=== PATIENT | male | born 1990 | race Two or more races ===

== ENCOUNTER 2021-08-31 10:52 | Outpatient (REF) | payer OTHER, SELFPAY ==
[2021-08-31 13:37] LABS: Appearance Urine CLOUDY; Color Urine YELLOW; Glucose Urine UA NEG (NEG); Leukocyte Esterase Urine NEG (NEG); Nitrite Urine NEG (NEG); Specific Gravity - Urine 1.015 (1.005-1.025); Urine Blood NEG (NEG); Urine Ketones NEG (NEG); Urine Protein NEG (NEG-TRACE)
[2021-08-31 13:41] LABS: MANUAL DIFF FLAG NO
[2021-08-31 13:55] LABS: Basophils Absolute Auto 0.1 X10*3/uL (0.0-0.2); Basophils Percent Auto 0.8 % (0-2); Eosinophils Absolute Auto 0.2 X10*3/uL (0.0-0.4); Eosinophils Percent Auto 2.2 % (0-4); Hematocrit 47.3 % (42.0-52.0); Hemoglobin 15.9 g/dl (14.0-18.0); Imm Gran Abs Auto 0.02 X10*3/uL (0.00-0.03); Imm Gran Pct Auto 0.3 % (0.0-0.4); Lymphocytes Absolute Auto 2.4 X10*3/uL (1.2-4.9); Lymphocytes Percent Auto 33.1 % (20-40); Mean Corpuscular HGB Conc 33.6 g/dl (31.0-36.0); Mean Corpuscular Hemoglobin 28.9 pg (27.0-33.0); Mean Corpuscular Volume 85.8 fL (80.0-98.0); Mean Platelet Volume 9.9 fL (9.4-12.4); Monocytes Absolute Auto 0.5 X10*3/uL (0.1-1.2); Monocytes Percent Auto 7.4 % (2-11); Neutrophils Percent Auto 56.2 % (45-73); Platelet Count 269 X10*3/uL (160-400); Red Blood Count 5.51 X10*6/uL (4.60-5.80); Red Cell Distribution Width 12.9 % (11.0-16.0); White Blood Count 7.1 X10*3/uL (4.8-10.8)
[2021-08-31 14:06] LABS: Alanine Aminotransferase 50 U/L (0-40); Albumin Level 4.3 g/dL (3.5-5.0); Alkaline Phosphatase 97 U/L (39-117); Anion Gap 12 (12-20); Aspartate Amino Transferase 37 U/L (5-37); Bilirubin Total 0.9 mg/dL (0.0-1.0); Blood Urea Nitrogen 10 mg/dL (9-16); Calcium 9.3 mg/dL (8.4-10.2); Carbon Dioxide 26 mmol/L (22-29); Chloride 105 mmol/L (96-108); Cholesterol 140 mg/dL; Estimated Glomerular Filt Rate > 60; Glucose Fasting 83 mg/dL (60-99); HDL Cholesterol 39 mg/dL; LDL Cholesterol Calculated 83 mg/dl; Sodium 139 mmol/L (135-145); Total Protein 7.6 g/dL (6.5-8.0); Triglycerides 93 mg/dL
[2021-08-31 14:28] LABS: TSH reflex Free T4 0.69 uIU/mL (0.32-4.0)
== END 2021-08-31 10:53 | disposition home or self-care (01) ==
LOC: HO.HMGCLDS 10:52
PROVIDERS: PCP Nurse Practitioner Family; Visit Provider Nurse Practitioner Family
DX: Z00.00 Encounter for general adult medical examination without abnormal findings (principal)
CPT/HCPCS: 36415; 80053; 80061; 81003; 84443; 85025

== ENCOUNTER 2021-10-06 09:04 | Outpatient (REF) | payer OTHER, SELFPAY ==
--- NOTE | ~2021-10-06 | US_ITS ---
EXAMINATION: US ABDOMEN COMPLETE CLINICAL INFORMATION: Elevated liver enzymes. COMPARISON: None TECHNIQUE: Real-time imaging of the abdominal viscera. Technically difficult study secondary to bowel gas and body habitus. FINDINGS: PANCREAS: Tail obscured by gas. Remaining of the visualized pancreas within normal limits. ABDOMINAL AORTA: The proximal, mid, and distal segments are normal in caliber. INFERIOR VENA CAVA: Visualized portions are normal. LIVER: Increased parenchymal echogenicity. No focal liver lesion. No intrahepatic biliary ductal dilatation. GALLBLADDER: There is a 0.6 cm gallbladder wall polyp. No gallbladder wall thickening or pericholecystic free fluid. Negative Hassan's sign. COMMON BILE DUCT: Normal in caliber measuring 0.32 cm in diameter. RIGHT KIDNEY: Normal. No hydronephrosis. No renal calculi or focal parenchymal lesions. The kidney measures 12.5 cm in maximum dimension. LEFT KIDNEY: Normal. No hydronephrosis. No renal calculi or focal parenchymal lesions. The kidney measures 14.2 cm in maximum dimension. SPLEEN: Normal. The spleen measures 13.5 cm in maximum dimension. FREE FLUID: None. US/US abdomen complete IMPRESSION: Increased linear parenchymal echogenicity suggesting hepatic steatosis. 0.6 cm gallbladder wall polyp. If the patient demonstrates any risk factors for gallbladder malignancy, a follow-up ultrasound in 6-12 months is recommended. Otherwise, this finding does not require further follow-up.
== END 2021-10-06 09:05 | disposition home or self-care (01) ==
LOC: HO.US 09:04
PROVIDERS: Visit Provider Nurse Practitioner Family
DX: R74.8 Abnormal levels of other serum enzymes (principal)
CPT/HCPCS: 76700

== ENCOUNTER → 2021-10-13 09:30 | Outpatient (REF) | payer OTHER, SELFPAY ==
--- NOTE | 2021-10-13 09:33 | CA_ITS ---
Transthoracic Echocardiogram Patient (Last, First, Middle): Jaskaran Bhat, Gender: Male Date of : 1990 Age: 30 Procedure Date: 10/13/2021 Procedure Type: Transthoracic Echocardiogram Location: OP Height: 182.88 cm Weight: 136.08 kg BSA: 2.53 m2 Heart Rate: bpm BP: 135 / 88 mmHg Sterile Processing Manager: SHAWN Referring MD: Marck Pack [facility]- Symptoms: R94.31 - Abnormal electrocardiogram [ECG] [EKG] Study Quality: Fair/contrast ECG Rhythm: Sinus Conclusions: - The left ventricular systolic function is low normal. The visually estimated ejection fraction is between 50-55%. - Mildly increased right ventricular cavity size. - No obvious valvular pathology seen on this study. Findings Procedure Information Contrast agent, definity, is being given per protocol without apparent complications. Left Ventricle Normal left ventricular cavity size. There is mildly increased left ventricular wall thickness. The left ventricular systolic function is low normal. The visually estimated ejection fraction is between 50-55%. There is no evidence of regional wall motion abnormalities. Diastolic function is normal for age. Right Ventricle Mildly increased right ventricular cavity size. There is normal right ventricular systolic function. Atria Both atria are normal in size. Aortic Valve There is a normal trileaflet aortic valve. There is no aortic valve stenosis. There is no aortic valve regurgitation. Mitral Valve The mitral valve appears normal. There is trace mitral valve regurgitation. There is no mitral valve stenosis. Pulmonic Valve The pulmonic valve is likely normal. Tricuspid Valve Normal tricuspid valve structure. There is trace tricuspid valve regurgitation. The pulmonary artery systolic pressure is normal. Great Vessels The aortic annulus, sinuses of valsalva, and asc aorta are normal in size. Venous The inferior vena cava is normal in size and collapses greater than 50% with inspiration. Pericardium/Pleural There is no evidence of pericardial effusion. Prior Study Comparison No prior study available for comparison. Recommendations, Care & Conclusions No obvious valvular pathology seen on this study. Measurements 2D Linear Measurements IVSd: 1.06 0.6-0.9/0.6-1.0 cm LVIDd: 5.67 3.9-5.3/4.2-5.9 cm LVIDd Index: 2.24 2.4-3.2/2.2-3.1 cm/m2 LVIDs: 4.02 2.0-3.6 cm LVPWd: 1.08 0.7-1.1 cm LA Diam: 3.70 2.7-3.8/3.0-4.0 cm LAIDs Index: 1.46 1.5-2.3 cm/m2 LV Mass: 305.86 67-162/88-224 g LV Mass Index: 120.89 43-95/49-115 g/m2 LVOT Diam: 2.30 3.0+(-)1.3 cm 2D Systolic Function EF 4C: 53.40 >55% EF 2C: 61.50 >55% EF BiP: 56.10 >55% Mitral Valve MV Pk E: 0.96 MV PK A: 0.44 MV Decel Time: 219.00 E/A: 2.20 E'Lateral: 12.20 E'Medial: 7.72 E/E' Med: 12.40 E/E' Lat: 7.90 PHT: 64.00 MVA PHT: 3.44 Decel [place]: 4.38 Aortic Valve AoV Pk [place]: 1.41 AoV Mn [place]: 1.04 AoV VTI: 0.32 AoV Pk Grad: 8.00 Aov Mn Grad: 5.00 SHAMIR Cont.VTI: 2.32 LVOT LVOT Pk [place]: 0.81 LVOT Mn [place]: 0.58 LVOT VTI: 0.18 LVOT Pk Grad: 3.00 LVOT Mn Grad: 2.00 LVOT Diam: 2.30 LVOT Area: 4.15 Diastolic Function MV Pk E: 0.96 MV Pk A: 0.44 E/A: 2.20 E'Medial: 7.72 E/E' Med: 12.40 E' Laterial: 12.20 E/E' Lat: 7.90 Right Ventricle TAPSE (mm): 2.80 TVS' [place]: 17.90 Tricuspid Valve RA Press: 3.00 Great Vessels Aorta Sinus of Valsalva: 3.46 2.0-3.[address] [place]: 2.83 1.7-3.4 cm Ao Asc: 3.40 2.1-3.4 cm Updated in Other Vendor System with Status of Final Lazaro Forte MD electronically signed on 10/14/2021 2:33:44 PM with status of Final
== END ==
LOC: HO.CARD 09:30
PROVIDERS: PCP Nurse Practitioner Family; Visit Provider Nurse Practitioner Family
DX: R94.31 Abnormal electrocardiogram [ECG] [EKG] (principal)
CPT/HCPCS: 93306; Q9957

== ENCOUNTER 2021-10-27 09:28 | Outpatient (REF) | payer OTHER, SELFPAY ==
[2021-10-27 11:37] LABS: MANUAL DIFF FLAG NO
[2021-10-27 11:47] LABS: Basophils Absolute Auto 0.1 X10*3/uL (0.0-0.2); Basophils Percent Auto 0.8 % (0-2); Eosinophils Absolute Auto 0.2 X10*3/uL (0.0-0.4); Eosinophils Percent Auto 2.9 % (0-4); Hematocrit 43.8 % (42.0-52.0); Hemoglobin 14.9 g/dl (14.0-18.0); Imm Gran Abs Auto 0.01 X10*3/uL (0.00-0.03); Imm Gran Pct Auto 0.2 % (0.0-0.4); Lymphocytes Absolute Auto 1.9 X10*3/uL (1.2-4.9); Lymphocytes Percent Auto 29.8 % (20-40); Mean Corpuscular Hemoglobin 29.2 pg (27.0-33.0); Mean Corpuscular Volume 85.7 fL (80.0-98.0); Mean Platelet Volume 9.5 fL (9.4-12.4); Monocytes Absolute Auto 0.6 X10*3/uL (0.1-1.2); Neutrophils Absolute Auto 3.7 x10*3/uL (2.0-8.3); Neutrophils Percent Auto 57.3 % (45-73); Platelet Count 280 X10*3/uL (160-400); Red Blood Count 5.11 X10*6/uL (4.60-5.80); Red Cell Distribution Width 12.7 % (11.0-16.0); White Blood Count 6.5 X10*3/uL (4.8-10.8)
[2021-10-27 11:52] LABS: Appearance Urine CLEAR; Color Urine YELLOW; Glucose Urine UA NEG (NEG); Leukocyte Esterase Urine NEG (NEG); Nitrite Urine NEG (NEG); Specific Gravity - Urine 1.015 (1.005-1.025); Urine Blood NEG (NEG); Urine Ketones NEG (NEG); Urine Protein NEG (NEG-TRACE)
[2021-10-27 12:20] LABS: Alanine Aminotransferase 41 U/L (0-40); Albumin Level 4.3 g/dL (3.5-5.0); Alkaline Phosphatase 90 U/L (39-117); Anion Gap 14 (12-20); Aspartate Amino Transferase 32 U/L (5-37); Blood Urea Nitrogen 12 mg/dL (9-16); Calcium 9.2 mg/dL (8.4-10.2); Carbon Dioxide 27 mmol/L (22-29); Chloride 104 mmol/L (96-108); Cholesterol 149 mg/dL; Estimated Glomerular Filt Rate > 60; Glucose Fasting 84 mg/dL (60-99); HDL Cholesterol 36 mg/dL; LDL Cholesterol Calculated 99 mg/dl; Potassium 4.6 mmol/L (3.3-5.1); Sodium 140 mmol/L (135-145); Total Protein 7.4 g/dL (6.5-8.0); Triglycerides 72 mg/dL
[2021-10-27 12:27] LABS: TSH reflex Free T4 0.99 uIU/mL (0.32-4.0)
== END 2021-10-27 09:29 | disposition home or self-care (01) ==
LOC: HO.HMGCLDS 09:28
PROVIDERS: PCP Nurse Practitioner Family; Visit Provider Nurse Practitioner Family
DX: I10 Essential (primary) hypertension (principal)
CPT/HCPCS: 36415; 80053; 80061; 81003; 84443; 85025

== ENCOUNTER → 2022-01-12 08:03 | Outpatient (BNVA) | payer OTHER, SELFPAY | PROVIDERS: PCP Nurse Practitioner Family; Visit Provider Nurse Practitioner Family | DX: R06.83 Snoring (principal); E66.01 Morbid (severe) obesity due to excess calories; R40.0 Somnolence; I10 Essential (primary) hypertension; R94.31 Abnormal electrocardiogram [ECG] [EKG] | CPT/HCPCS: 99202 ==

== ENCOUNTER → 2022-03-26 19:30 | Outpatient (REF) | payer OTHER, SELFPAY | LOC: HO.SL 19:30 | PROVIDERS: PCP Nurse Practitioner Family; Visit Provider Nurse Practitioner Family | DX: G47.33 Obstructive sleep apnea (adult) (pediatric) (principal); R40.0 Somnolence | CPT/HCPCS: 95811 ==

== ENCOUNTER 2022-07-06 07:50 | Outpatient (REF) | payer OTHER, SELFPAY ==
--- NOTE | ~2022-07-06 | US_ITS ---
EXAMINATION: US ABDOMEN LIMITED CLINICAL INFORMATION: Cholesterolosis of the gallbladder. COMPARISON: Ultrasound abdomen complete 10/06/2021. TECHNIQUE: Real-time imaging of the right upper quadrant abdominal viscera. FINDINGS: PANCREAS: Pancreatic tail is obscured by overlying bowel gas. Otherwise, visualized pancreas is within normal limits. LIVER: The liver is normal in size. The liver contour is normal. Increased echogenicity. No focal hepatic lesion. There is no intrahepatic biliary duct dilatation seen. GALLBLADDER: Redemonstration of a 0.6 cm gallbladder wall polyp, stable compared to 10/06/2021. The gallbladder is physiologically distended without evidence of stones, sludge, wall thickening or pericholecystic fluid. COMMON BILE DUCT: Normal in caliber measuring 0.3 cm in diameter. RIGHT KIDNEY: Normal. No hydronephrosis. No renal calculi or focal parenchymal lesions. The kidney measures 15.2 cm in maximum dimension. FREE FLUID: None. US/US abdomen limited IMPRESSION: 1. Stable 0.6 cm gallbladder wall polyp compared to 10/06/2021. No additional follow-up recommended. 2. Increased liver parenchyma echogenicity suggesting hepatic steatosis.
== END 2022-07-06 07:51 | disposition home or self-care (01) ==
LOC: HO.US 07:50
PROVIDERS: PCP Nurse Practitioner Family; Visit Provider Nurse Practitioner Family
DX: K82.4 Cholesterolosis of gallbladder (principal); R74.8 Abnormal levels of other serum enzymes
CPT/HCPCS: 76705

== ENCOUNTER 2022-07-29 11:39 | Outpatient (REF) | payer OTHER, SELFPAY ==
[2022-07-31 09:20] LABS: HIV AB/AG Nonreactive (Nonreactive); HIV Num 1 0.06 S/CO (0.00-0.99); ~Hepatitis B Surface Antibody REACTIVE (Nonreactive); ~Hepatitis C Antibody Nonreactive (Nonreactive)
[2022-07-31 09:23] LABS: Syphilis Screen Reactive (Nonreactive)
[2022-08-03 12:36] LABS: RPR Quantitative Reactive 1:1 (Nonreactive); T.Pallidum Particle Agg Test Reactive (Nonreactive)
== END 2022-07-29 11:40 | disposition home or self-care (01) ==
LOC: HO.HMGCLDS 11:39
PROVIDERS: PCP Nurse Practitioner Family; Visit Provider Physician Assistant Medical
DX: Z11.4 Encounter for screening for human immunodeficiency virus [HIV] (principal); Z20.2 Contact with and (suspected) exposure to infections with a predominantly sexual mode of transmission
CPT/HCPCS: 36415; 86592; 86706; 86780; 86803; 87389

== ENCOUNTER 2022-07-31 17:11 | Emergency (ER) | payer OTHER, SELFPAY ==
[2022-07-31 17:23] VITALS: BP 189/98; PULSE 92; RESP 18; TEMP 36.7; O2SAT 98; BMI 47.9
--- NOTE | 2022-07-31 17:23 | ED_ITS ---
HPI - General Adult General Chief complaint: General Medical Stated complaint: std treatment/ ear leaking Time Seen by Provider: 07/31/22 18:08 Source: patient Mode of arrival: ambulatory Limitations: no limitations History of Present Illness HPI narrative: Patient is a 31 year old assigned male at with a history of HTN presenting to the emergency department today requesting treatment for Syphilis. Patient st ates that he was seen at an urgent care through [facility] and was tested for STI. Patient states that he was given rocephin IM at the clinic and has been taking his PO Doxycycline as prescribed. Patient states that he was called today and told he was positive for Syphilis. Patient states that the clinic that called told him they'd be reporting it. Patient states that his right ear has also been bothering him with some clear discharge. Patient denies any dizziness, lightheadedness, abdominal pain, nausea, vomiting, fever, chills, blurry vision, double vision, loss of vision, chest pain, difficulty breathing, shortness of breath, back pain, night sweats, increased urinary frequency, increased urinary urgency, blood in his urine or stool, syncope or a near syncopal episode, recent trauma or falls, bowel incontinence, bladder incontinence, bowel retention, bladder retention, or any other complaints at this time. Relieving factors: none Exacerbating factors: none Associated symptoms: denies other symptoms Treatments prior to arrival: none Related Data Previous Rx's Medication Instructions Recorded metoprolol succinate 25 mg 12.5 mg PO DAILY #45 tabs 07/21/22 tablet,extended release 24 hr Allergies Allergy/AdvReac Type Severity Reaction Status Date / Time pineapple Allergy Severe throat Verified 07/31/22 17:23 swelling Review of Systems Constitutional: Constitutional: Reports no additional constitutional complaints, Denies chills, Denies fever(s) and Denies night sweats Eyes: Eyes: Reports no additional eye complaints, Denies blurry vision, Denies change in vision, Denies diplopia, Denies eye discharge, Denies loss of vision and Denies eye pain ENT: Denies dizziness Comments: right ear discharge - clear Cardiovascular: Cardiovascular: Reports no additional cardiovascular complaints, Denies chest pain, Denies lightheadedness, Denies Loss of Consciousness and Denies dyspnea Respiratory: Respiratory: Reports no additional respiratory complaints and Denies dyspnea Gastrointestinal: Gastrointestinal: Reports no additional gastrointestinal complaints, Denies abdominal pain, Denies melena, Denies hematochezia, Denies change in bowel habits and Denies change in stool character Genitourinary: Genitourinary: Reports no additional male genitourinary complaints, Denies hematuria, Denies oliguria, Denies difficulty urinating, Denies dysuria, Denies urinary frequency, Denies urinary hesitancy, Denies urinary incontinence and Denies urinary urgency Musculoskeletal: Musculoskeletal: Reports no additional musculoskeletal complaints, Denies numbness and Denies tingling Neurologic: Denies dizziness, Denies loss of vision, Denies numbness and Denies tingling Psychiatric: Psychiatric: Reports no additional psychiatric complaints Endocrine: Endocrine: Reports no additional endocrine complaints Hematologic/Lymphatic: Hematologic/Lymphatic: Reports no additional hematologic/lymphatic complaints Allergic/Immunologic: Allergic/Immunologic: Reports no additional allergic/immunologic complaints [facility] Past Medical History Attestation statement: The following information was validated with the patient. Source: old records reviewed and nursing notes reviewed Family History Family History Father Diabetes Cancer Mother Diabetes High blood pressure Social History Social History Housing: Apartment Alcohol intake: current Alcohol intake frequency: a few times a month Patient Tobacco Use Status: Never used Tobacco e-Cigarette/Vaping Use: Never Used Second Hand Smoke Exposure: Yes Advance Directives: No Advance Directives Information Provided: No service: No Current occupational status: employed Current occupation: [employer] Current occupational exposures/hazards: Yes Cognitive needs: No Hearing needs: No Vision needs: No Physical Exam ED Vital Signs: Vital Signs - 24 hr 07/31/22 17:23 Temperature 98.0 F Pulse Rate 92 Respiratory Rate 18 Blood Pressure 189/98 H Pulse Oximetry 98 Oxygen Delivery Method Room Air BMI result Body Mass Index 47.9 Const General: cooperative, no acute distress, alert and awake Nutritional Appearance: well nourished Orientation/consciousness: patient oriented x3 Limitations: no limitations HENMT Head: Yes normal to inspection and Yes atraumatic Ears: hearing grossly normal bilaterally, external ears normal and TM's normal bilaterally General nose exam: Normal external nose present, no nasal discharge noted and no epistaxis Face and sinus: Yes normal facial exam, No abrasion and No laceration Mouth: Normal oral and palatal mucosa present, no drooling and no muffled voice Eyes General: appearance normal, both eyes and all related structures Periorbital: periorbital findings normal Eyelids: Yes eyelids normal Conjunctivae: conjunctivae normal Pupils: Equal, round and reactive pupils present EOM: EOMs intact bilaterally Neck Neck: Yes normal visual inspection, Yes full ROM and Yes no lymphadenopathy Chest Chest palpation & inspection: normal inspection of the chest Resp Effort & Inspection: normal respiratory effort and able to speak in complete sentences GI Inspection: Yes normal to inspection Neuro General: patient oriented x3 and moves all extremities Cranial nerves: Yes Equal, round and reactive pupils present Cognition (Neuro): normal cognition Motor exam (neuro): 5/5 motor strength present throughout Sensory Exam: Normal double simultaneous stimulation for sensation Coordination: [id number] test normal Extrem General: Yes normal to inspection, Yes full ROM and Yes capillary refill normal Psych Appearance: grossly normal Mental Status: mental status grossly normal Affect: normal affect Attitude: cooperative Thought process: Normal thought process present Thought content: Normal thought content present Insight: Good insight present (Psych) Course Course Course Narrative: This is a rapid medical exam. Deferred additional HPI, ROS, PE to primary provider. 31 yo male with history of HTN here with complaints here seeking treatment for syphilis. Patient had symptoms of dysuria, penile discharge on the which are now resolved. Went to [facility] and had testing for gonorrhea/chlamydia. Treated with ceftriaxone IM, doxycycline x 7 days. Then went to walk in [place] who did labs for HIV, HEP B/HEP C/syphilis and called today with + results. Also c/o ear drainage from right ear. Will need treatment for syphilis. VSS Medications Administered Discontinued Medications Generic Name Dose Route Start Last Admin Trade Name Freq PRN Reason Stop Dose Admin Penicillin G Benzathine 2,400,000 unit 07/31/22 18:08 07/31/22 18:29 Penicillin G Benzathine 2,400,000 Unit/4 Ml Syringe IM 07/31/22 18:09 2,400,000 unit ONCE ONE Administration Medical Decision Making Medical Decision Making [facility] Narrative: Patient is a 31 year old assigned male at with a history of HTN presenting to the emergency department today requesting Syphilis treatment. Patient's physical exam was unremarkable including normal bilateral ear canals. I explained my physical exam findings to the patient. I answered all questions asked by the patient. Patient received Syphilis treatment while in the department. I stressed the importance of the patient taking his medication as prescribed. I stressed the importance of the patient following up with his primary care provider. I stressed the importance of the patient returning to the emergency department immediately if his symptoms were to worsen or if he were to develop any dizziness, shortness of breath, difficulty breathing, chest pain, blurry vision, loss of vision, nausea, vomiting, abdominal pain, fever, chills, back pain, or any other complaints. Patient verbalized agreement and understanding with this treatment plan and discharge. Differential Diagnosis Differential Diagnoses: The differential diagnosis associated with the presentation includes Syphilis Discharge Plan Discharge Clinical Impression: Syphilis Patient Disposition: Home, Self-Care Instructions: Syphilis (ED) Additional Instructions: Continue your doxycycline as previously prescribed. Follow up with your primary care provider. Return to the emergency department immediately if your symptoms worsen or if you develop any dizziness, shortness of breath, difficulty breathing, chest pain, blurry vision, loss of vision, nausea, vomiting, abdominal pain, fever, chills, back pain, or any other complaints. Prescriptions: No Action metoprolol succinate 25 mg tablet extended release 24 hr 12.5 mg PO DAILY Qty: 45 1RF Referrals: Marck Pack FNP-[facility] [Primary Care Provider] - Stand Alone Forms: Work/School Release Print Language: Occitan
[2022-07-31] MEDS: Penicillin G Benzathine 2,400,000 UNIT/4 ML SYRINGE 2400000 UNIT IM (18:29)
== END 2022-07-31 18:44 | disposition home or self-care (01) ==
PROVIDERS: Emergency Provider Emergency Medicine; PCP Nurse Practitioner Family
DX: A53.9 Syphilis, unspecified (principal); I10 Essential (primary) hypertension; Z79.899 Other long term (current) drug therapy
CPT/HCPCS: 96372; 99283; 99284; J0561

== ENCOUNTER 2022-09-17 08:43 | Emergency (ER) | payer OTHER, SELFPAY ==
[2022-09-17 08:53] VITALS: BP 150/79; PULSE 75; RESP 18; TEMP 36.2; O2SAT 97; BMI 43.6
--- NOTE | 2022-09-17 09:27 | ED.GENADULT ---
HPI - General Adult General Chief complaint: General Medical Stated complaint: Rectal bleed Time Seen by Provider: 09/17/22 09:00 Source: patient Mode of arrival: ambulatory Limitations: no limitations History of Present Illness HPI narrative: Patient is a 31-year-old male with history of hypertension, obesity, known hemorrhoids presenting to the emergency department for bright red rectal bleeding noted after applying hemorrhoid cream this morning. Patient denies any recent constipation or straining during bowel movement. He reports that he had to wipe his rectal area several times due to continued bleeding. States has never had bleeding before, only discomfort. He denies any abdominal pain, nausea, vomiting, diarrhea, or constipation. He denies any bright red blood in stool or dark tarry stools. He denies any current rectal pain. Denies any foreign body insertion into rectum. MD complaint: Bright red rectal bleeding Onset (ago): hour(s) Location: genitals Treatments prior to arrival: none Related Data Previous Rx's Medication Instructions Recorded metoprolol succinate 25 mg 12.5 mg PO DAILY #45 tabs 07/21/22 tablet,extended release 24 hr cocoa butter-shark liver oil 1 supp [place] DAILY PRN hemorrhoids 09/17/22 rectal suppository #12 ea docusate sodium 100 mg capsule 100 mg PO DAILY #20 caps 09/17/22 phenylephrine 0.25 %-pramoxine 1 1 appl [place] QID PRN hemorrhoids #26 09/17/22 %-glycerin-wh.petrolatum rectal grams cream (Preparation H Maximum Strength) Allergies Allergy/AdvReac Type Severity Reaction Status Date / Time pineapple Allergy Severe throat Verified 09/17/22 08:53 swelling Review of Systems Review of Systems: As per HPI. Yes all other systems are reviewed and are negative Constitutional: Constitutional: Reports as per HPI [facility] Family History Family History Father Diabetes Cancer Mother Diabetes High blood pressure Social History Social History Housing: Apartment Alcohol intake: current Alcohol intake frequency: a few times a month Patient Tobacco Use Status: Never used Tobacco e-Cigarette/Vaping Use: Never Used Second Hand Smoke Exposure: Yes Advance Directives: No Advance Directives Information Provided: Yes service: No Current occupational status: employed Current occupation: [employer] Current occupational exposures/hazards: Yes Cognitive needs: No Hearing needs: No Vision needs: No Physical Exam ED Vital Signs: Vital Signs - 24 hr 09/17/22 08:53 Temperature 97.2 F Pulse Rate 75 Respiratory Rate 18 Blood Pressure 150/79 H Pulse Oximetry 97 Oxygen Delivery Method Room Air BMI result Body Mass Index 43.6 Vital signs have been reviewed and appear to be correct. Blood pressure elevated. Heart rate normal. Respiratory rate normal. Temperature normal. Oxygen saturation normal. Const General: cooperative, healthy appearing and no acute distress Orientation/consciousness: oriented to person, oriented to place, oriented to time and patient oriented x3 Limitations: no limitations HENMT Head: Yes normocephalic and Yes atraumatic Ears: external ears normal General nose exam: Normal external nose present Face and sinus: Yes face symmetric Mouth: oropharynx normal and moist mucous membranes Throat: Yes uvula midline Eyes Pupils: Equal, round and reactive pupils present Neck Neck: Yes normal visual inspection and Yes supple Resp Effort & Inspection: normal respiratory effort and able to speak in complete sentences Auscultation: clear to auscultation bilaterally Cardio Rate: regular rate Rhythm: regular rhythm Heart sounds: S1 normal heart sound present and S2 normal heart sound present GI Other: Exam chaperoned by DOROTHEA Cooper. Inspection: Yes normal to inspection and Yes obesity Palpation (GI): Soft to palpation and nontender Auscultation: normoactive bowel sounds Rectal Exam - Male: Yes External hemorrhoid(s) present (small amount of bright red blood noted, no active bleeding) and No Anal fissure(s) present General: Yes no CVA tenderness Back/Spine/Pelvis Back: no CVA tenderness Skin General skin exam: elasticity normal and turgor normal Neuro General: oriented to person, oriented to place, oriented to time, patient oriented x3, moves all extremities, no focal motor deficits and CN's II-XI intact bilaterally Cranial nerves: Yes Equal, round and reactive pupils present Cognition (Neuro): normal cognition Extrem General: Yes full ROM, Yes no pedal edema and Yes no calf tenderness Psych Mental Status: mental status grossly normal Affect: normal affect Thought process: Normal thought process present Medical Decision Making Medical Decision Making MDM Narrative: Patient is a 31-year-old male with history of hypertension, obesity, known hemorrhoids presenting to the emergency department for bright red rectal bleeding noted after applying hemorrhoid cream this morning. On exam patient is awake, A+Ox3, VS WNL except for elevated BP, patient has hx of HTN, afebrile, normal neurological exam without focal deficits, abdomen is soft and nontender, external hemorrhoids present on rectal exam with small amount of bright red blood visible, no active bleeding, no obvious thrombus. Given reported symptoms and physical exam findings, differential includes external hemorrhoids, thrombus, internal hemorrhoids, anal fissure. Low suspicion for rectal ulcer, rectal foreign body. Presentation not consistent with other emergent causes of upper or lower GI bleeding. No evidence of hemorrhagic shock. Will discharge patient home with prescription for phenylephrine suppository, stool softener. Instructed patient to follow-up with PCP regarding elevated blood pressure. Return precautions discussed at bedside. Patient verbalized understanding of and agreement with plan. Differential Diagnosis Differential Diagnoses: The differential diagnosis associated with the presentation includes As above. External Record Review External record reviewed: Inpatient record, Office record and Outpatient record Prescription Management I considered prescription management with: Other (phenylephrine suppository, cream, stool softner) Chronic Conditions Patient?s care impacted by: Hypertension and Other (obesity) Discharge Plan Discharge Clinical Impression: External hemorrhoid, bleeding, HTN (hypertension) Patient Disposition: Home, Self-Care Instructions: Hemorrhoids (DC) Additional Instructions: You were evaluated in the emergency department today for bright red rectal bleeding. Based on exam findings, this bleeding is likely related to external hemorrhoids. You are being prescribed phenylephrine suppositories as well as cream which you can apply to the affected area. You are also being prescribed a stool softener. Avoid straining during bowel movements. Use caution while wiping for the next 1-2 days. If bleeding does reoccur, apply pressure with a gauze provided and lie face-down on a couch for a minimum of 15 minutes until bleeding is controlled. Return to the emergency department for increasing pain, uncontrolled bleeding, fever 100.4? F or greater, bloody stool, dark, tarry stool, or any other concerning symptoms. Please follow-up with your primary care provider regarding your blood pressure which was elevated in the emergency department today. Prescriptions: New cocoa butter-shark liver oil Suppository 1 supp [place] DAILY PRN (Reason: hemorrhoids) Qty: 12 0RF Preparation H Maximum Strength 0.25-1 % cream 1 appl [place] QID PRN (Reason: hemorrhoids) Qty: 26 0RF docusate sodium 100 mg capsule 100 mg PO DAILY Qty: 20 0RF No Action metoprolol succinate 25 mg tablet extended release 24 hr 12.5 mg PO DAILY Qty: 45 1RF
== END 2022-09-17 09:54 | disposition home or self-care (01) ==
PROVIDERS: Emergency Provider Emergency Medicine Emergency Medical Services; PCP Nurse Practitioner Family
DX: K64.4 Residual hemorrhoidal skin tags (principal); K62.5 Hemorrhage of anus and rectum; I10 Essential (primary) hypertension
CPT/HCPCS: 99283

== ENCOUNTER 2022-10-12 11:30 | Outpatient (AMB) | payer OTHER, SELFPAY ==
--- NOTE | 2022-10-12 11:38 | MHC.PC.OV ---
Vital Signs 10/12/22 11:39 Height 6 ft Weight 324 lb BMI 43.9 BP 128/82 Blood Pressure Location Lt brachial Position Sitting Pulse 64 Pulse Source Pulse Oximeter Pulse Oximetry (%) 97 Oxygen Delivery Method Room Air Intake Visit Reasons: PE/BP Allergies pineapple Allergy (Severe, Verified 10/12/22 13:14) throat swelling Medication List - Last Reconciled 10/12/22 by KIMO Patel metoprolol succinate ER 25 mg PO DAILY Tobacco use date assessed: 10/12/22 Dental Screening Dental Screen Date: 10/12/22 Did you have a dental visit in the last 12 months?: No Did you have a dental problem in the last 6 months where you did not have access to dental care?: No Was dental information given to patient?: No HPI PE/BP HPI Details Pt is here for a PE. Will order labs. HTN: stable today, though trending in the 140s/90s at home. will increase metoprolol and add low dose hctz. PFSH Family History Father Diabetes Cancer Mother Diabetes High blood pressure Social History Housing: Apartment Alcohol intake: current Alcohol intake frequency: a few times a month Patient Tobacco Use Status: Never used Tobacco e-Cigarette/Vaping Use: Never Used Second Hand Smoke Exposure: Yes service: No Current occupational status: employed Current occupation: [employer] Current occupational exposures/hazards: Yes Cognitive needs: No Hearing needs: No Vision needs: No Questionnaire PHQ-9 Over the last 2 weeks, how often have you been bothered by any of the following problems? 1. Little interest or pleasure in doing things: not at all 2. Feeling down, depressed, or hopeless: not at all 3. Trouble falling or staying asleep, or sleeping too much: several days 4. Feeling tired or having little energy: several days 5. Poor appetite or overeating: several days 6. Feeling bad about yourself - or that you are a failure or have let yourself or your family down: not at all 7. Trouble concentrating on things, such as reading the newspaper or watching television: not at all 8. Moving or speaking so slowly that other people could have noticed. Or the opposite - being so fidgety or restless that you have been moving around a lot more than usual: not at all 9. Thoughts that you would be better off or of hurting yourself in some way: not at all Total score: 3 Source: Developed by Drs. Christian Laurent, Lise Waldrop, Clifford Maldonado and colleagues, with an educational cortez from [employer]. Thrive Questionnaire Date Thrive assessed: 10/12/22 I am a: Patient What is your living situation today?: I have a steady place to live Within the past 12 months, did the food you bought not last and you didn't have the money to get more?: Never true Within the past 12 months, did you worry whether your food would run out before you got money to buy more?: Never true Do you have trouble paying for medicines?: No Do you have trouble getting transportation to medical appointments?: No Do you have trouble paying your heating and electricity bill?: No Do you have trouble taking care of your child, family member or friend?: No Do you have trouble with day-to-day activities such as bathing, preparing meals, shopping, managing finances, etc.?: No Are you currently unemployed and looking for a job?: No Are you interested in more education?: Yes MATHEW-7 AMB Questionnaire MATHEW-7 Date MATHEW - 7 assessed: 10/12/22 Feeling nervous, anxious, or on edge: 0 = Not at all Not being able to stop or control worryin = Not at all Worrying too much about different things: 0 = Not at all Trouble relaxin = Not at all Being so restless that it is hard to sit still: 0 = Not at all Becoming easily annoyed or irritable: 1 = Several days Feeling afraid as if something awful might happen: 0 = Not at all Total MATHEW-7 score (0-4 normal; 5-9 mild; 10-14 moderate; 15-21 severe): 1 Source: Developed by Drs. Christian Laurent, Lise Waldrop, Clifford Maldonado and colleagues, with an educational cortez from [employer]. Review of Systems Const Denies chills and Denies fever(s) Eyes Denies blurry vision ENT Denies vertigo, Denies dizziness and Denies sore throat Card Denies chest pain at rest, Denies chest pain with activity, Denies diaphoresis, Denies dyspnea and Denies dyspnea on exertion Resp Denies cough, Denies dyspnea, Denies dyspnea on exertion and Denies wheezing GI Denies abdominal pain, Denies melena, Denies hematochezia, Denies constipation, Denies diarrhea and Denies loose stools Denies hematuria Musc Denies numbness and Denies tingling Skin/Breast Denies lesions Neuro Denies vertigo, Denies dizziness, Denies numbness and Denies tingling Psych Denies anxiety, Denies depression, Denies homicidal ideation, Denies suicidal ideation and Denies other (substance abuse) Aller/Immun Denies wheezing Physical exam (Primary Care) Vital Signs: Last Vital Signs Pulse 64 10/12/22 11:39 BP 128/82 10/12/22 11:39 Pulse Ox 97 10/12/22 11:39 Oxygen Delivery Method Room Air 10/12/22 11:39 BMI result Body Mass Index 43.9 Tobacco/Smoking Status: Tobacco use Status Tobacco use date assessed 10/12/22 10/12/22 11:43 Patient Tobacco Use Status Never used Tobacco 10/12/22 11:43 e-Cigarette/Vaping Use Never Used 10/12/22 11:43 PHQ-9: PHQ-9 Score PHQ-9: Total score 3 10/12/22 12:26 Thrive Assessment: Date of Thrive Assessment Date Thrive assessed 10/12/22 10/12/22 12:02 Const General: cooperative Nutritional Appearance: well nourished, obese and overweight Orientation/consciousness: patient oriented x3 HENMT Head: Yes normal to inspection, Yes normocephalic and Yes atraumatic Ears: TM's normal bilaterally Eyes General: appearance normal, both eyes and all related structures Alignment and Position: alignment normal and position normal Neck Neck: Yes normal visual inspection and Yes no lymphadenopathy Thyroid: Thyroid normal Resp Effort & Inspection: normal respiratory effort Auscultation: clear to auscultation bilaterally Cardio Rate: regular rate Rhythm: regular rhythm Heart sounds: S1 normal heart sound present, S2 normal heart sound present and no murmurs GI Palpation (GI): Soft to palpation and nontender Auscultation: normal bowel sounds Male General Exam: Yes normal external exam Penis: normal penis Scrotum: scrotum normal, testes descended bilaterally and no inguinal hernias Testes: no testicular mass Skin Rashes: no rashes Neuro General: patient oriented x3, moves all extremities, no focal motor deficits and deep tendon reflexes 2+ bilaterally Romberg Test: Negative Psych Appearance: grossly normal Mental Status: mental status grossly normal Speech and movement: Normal speech and movement present Affect: normal affect Attitude: cooperative Thought process: Normal thought process present Thought content: Normal thought content present Insight: Good insight present (Psych) Judgement: Good judgement present (Psych) Assessment and Plan Assessment & Plan (1) Physical exam: Code(s): Z00.00 - Encounter for general adult medical examination without abnormal findings (2) HTN (hypertension): Code(s): I10 - Essential (primary) hypertension Plan: increase BB and add HCTZ Orders: Orders Comprehensive [place]. Panel Fast Today I10 - Essential (primary) hypertension, Z00.00 - Encounter for general adult medical examination without abnormal findings Lipid Panel Today I10 - Essential (primary) hypertension, Z00.00 - Encounter for general adult medical examination without abnormal findings TSH reflex Free T4 Today I10 - Essential (primary) hypertension, Z00.00 - Encounter for general adult medical examination without abnormal findings Complete Blood Count Auto Diff Today I10 - Essential (primary) hypertension, Z00.00 - Encounter for general adult medical examination without abnormal findings UA CC w/rflx Micro + Cult Today I10 - Essential (primary) hypertension, Z00.00 - Encounter for general adult medical examination without abnormal findings Medications: New hydrochlorothiazide 12.5 mg PO DAILY 30 tabs 2RF 30 days Changed From metoprolol succinate ER 25 mg PO DAILY 90 tabs 1RF To metoprolol succinate ER 50 mg PO DAILY 90 tabs 1RF 90 days Coding Level of Care Code Est Pt Prev Care 18-39y(50698) Diagnoses Physical exam Z00. HTN (hypertension) I10
[2022-10-12 11:39] VITALS: BP 128/82; PULSE 64; O2SAT 97; BMI 43.9
== END 2022-10-12 13:50 | disposition home or self-care (01) ==
PROVIDERS: Visit Provider Nurse Practitioner Family
DX: Z00.00 Encounter for general adult medical examination without abnormal findings (principal); I10 Essential (primary) hypertension
CPT/HCPCS: 99395

== ENCOUNTER 2023-01-26 09:18 | Outpatient (REF) | payer OTHER, SELFPAY ==
[2023-01-26 11:21] LABS: Appearance Urine Cloudy; Color Urine Yellow; Glucose Urine UA Negative (Negative); Leukocyte Esterase Urine Trace (Negative); Nitrite Urine Negative (Negative); PH 5.5 (5.0-9.0); UMIC TRIGGER UACC YES; Urine Blood Negative (Negative); Urine Ketones Negative (Negative); Urine Protein Negative (Neg-Trace)
[2023-01-26 11:22] LABS: MANUAL DIFF FLAG NO
[2023-01-26 11:24] LABS: Bacteria Urine None Seen (None Seen); Hyaline Casts Urine 0-2 /LPF (0-2); RBC Urine 0-2 /HPF (0-2); Squamous Epithelial Cell Urine 0-2 /HPF (0-2); WBC Urine 0-5 /HPF (0-5)
[2023-01-26 11:38] LABS: Basophils Absolute Auto 0.1 X10*3/uL (0.0-0.2); Basophils Percent Auto 0.8 % (0-2); Eosinophils Absolute Auto 0.2 X10*3/uL (0.0-0.4); Eosinophils Percent Auto 1.9 % (0-4); Hematocrit 49.6 % (42.0-52.0); Hemoglobin 16.2 g/dl (14.0-18.0); Imm Gran Abs Auto 0.03 X10*3/uL (0.00-0.03); Imm Gran Pct Auto 0.4 % (0.0-0.4); Lymphocytes Absolute Auto 2.2 X10*3/uL (1.2-4.9); Lymphocytes Percent Auto 27.4 % (20-40); Mean Corpuscular HGB Conc 32.7 g/dl (31.0-36.0); Mean Corpuscular Hemoglobin 28.7 pg (27.0-33.0); Mean Corpuscular Volume 87.9 fL (80.0-98.0); Mean Platelet Volume 9.9 fL (9.4-12.4); Monocytes Absolute Auto 0.5 X10*3/uL (0.1-1.2); Monocytes Percent Auto 5.9 % (2-11); Neutrophils Absolute Auto 5.1 x10*3/uL (2.0-8.3); Neutrophils Percent Auto 63.6 % (45-73); Platelet Count 274 X10*3/uL (160-400); Red Blood Count 5.64 X10*6/uL (4.60-5.80); Red Cell Distribution Width 12.9 % (11.0-16.0)
[2023-01-26 12:03] LABS: Alanine Aminotransferase 30 U/L (0-40); Albumin Level 4.1 g/dL (3.5-5.0); Alkaline Phosphatase 82 U/L (39-117); Anion Gap 9 (12-20); Aspartate Amino Transferase 21 U/L (5-37); Bilirubin Total 0.6 mg/dL (0.0-1.0); Blood Urea Nitrogen 12 mg/dL (9-16); Calcium 9.1 mg/dL (8.4-10.2); Carbon Dioxide 29 mmol/L (22-29); Chloride 105 mmol/L (96-108); Cholesterol 145 mg/dL (<200); Estimated Glomerular Filt Rate > 60; Glucose Fasting 105 mg/dL (60-99); HDL Cholesterol 35 mg/dL (>40); LDL Cholesterol Calculated 93 mg/dL (<100); Potassium 4.2 mmol/L (3.3-5.1); Sodium 139 mmol/L (135-145); Total Protein 7.8 g/dL (6.5-8.0); Triglycerides 89 mg/dL (<150)
[2023-01-26 12:23] LABS: TSH reflex Free T4 1.07 uIU/mL (0.32-4.0)
== END 2023-01-26 09:19 | disposition home or self-care (01) ==
LOC: HO.HMGCLDS 09:18
PROVIDERS: PCP Nurse Practitioner Family; Visit Provider Nurse Practitioner Family
DX: Z00.00 Encounter for general adult medical examination without abnormal findings (principal); I10 Essential (primary) hypertension
CPT/HCPCS: 36415; 80053; 80061; 81001; 84443; 85025

== ENCOUNTER 2023-02-12 09:29 | Emergency (ER) | payer OTHER, SELFPAY ==
--- NOTE | ~2023-02-12 | CT_ITS ---
EXAMINATION: CT ABDOMEN AND PELVIS WITHOUT CONTRAST CLINICAL INFORMATION: Flank pain. COMPARISON: Abdominal ultrasound 07/06/2022. TECHNIQUE: Multidetector volumetric imaging was performed from the superior aspect of the liver through the pubic symphysis. Sagittal and coronal reformatted images were obtained on the technologist's workstation. This CT examination was performed using dose optimization techniques as appropriate, variously including the following: *Automated exposure control *Adjustment of mA and/or kV according to patient size (this includes techniques or standardized protocols for targeted exams where dose is matched to indication/reason for exam; i.e. extremities or head) *Use of iterative reconstruction technique DLP: 1126 mGy-cm FINDINGS: The lack of intravenous contrast limits evaluation of the solid visceral organs including the liver, spleen, pancreas, and kidneys. LUNG BASES: The visualized lung bases are unremarkable. LIVER, GALLBLADDER, AND BILIARY TREE: Decreased attenuation of liver parenchyma consistent with hepatic steatosis, otherwise liver is normal in size and shape. No focal hepatic lesion or biliary ductal dilatation is present. The gallbladder is unremarkable with no evidence of radiopaque gallstones, gallbladder wall thickening, or obvious pericholecystic inflammatory changes. PANCREAS: Unremarkable. SPLEEN: Unremarkable. ADRENAL GLANDS: Unremarkable. KIDNEYS AND URETERS: Mild left-sided hydroureteronephrosis with a 0.5 cm calculus in the distal left ureter at approximately 1 cm from the ureterovesical junction (3:772). Nonobstructive 0.6 cm calculus in the upper pole of the left kidney situated at 11.5 cm from the skin surface of the posterior axillary line (3:343). A few additional punctate nonobstructive calculi in the upper left kidney. No right-sided calculi. No significant perinephric fat stranding. BLADDER: Unremarkable. GASTROINTESTINAL TRACT: The stomach and the small bowel are nondilated. Normal appendix. Mild colonic diverticulosis is without findings to suspect acute diverticulitis. No bowel obstruction. ABDOMINAL WALL: No significant hernia is appreciated. LYMPH NODES: No lymphadenopathy by CT short axis size criteria. VASCULAR: Normal caliber abdominal aorta. PELVIC VISCERA: Unremarkable. OSSEOUS STRUCTURES: No acute or aggressive appearing osseous findings. Degenerative changes of the spine. CT/CT abdomen pelvis wo IV con IMPRESSION: 1. Mild left-sided hydroureteronephrosis with a 0.5 cm calculus in the distal left ureter. 2. Additional nonobstructive calculi in the upper pole of the left kidney. 3. Hepatic steatosis. 4. Diverticulosis but no evidence of acute diverticulitis.
[2023-02-12 09:40] VITALS: BP 127/83; PULSE 73; RESP 20; TEMP 36.6; O2SAT 98; BMI 45.7
[2023-02-12 10:12] LABS: MANUAL DIFF FLAG NO
[2023-02-12 10:14] LABS: Basophils Absolute Auto 0.1 X10*3/uL (0.0-0.2); Basophils Percent Auto 0.9 % (0-2); Eosinophils Absolute Auto 0.2 X10*3/uL (0.0-0.4); Eosinophils Percent Auto 2.3 % (0-4); Hematocrit 46.2 % (42.0-52.0); Hemoglobin 15.6 g/dl (14.0-18.0); Imm Gran Abs Auto 0.01 X10*3/uL (0.00-0.03); Imm Gran Pct Auto 0.1 % (0.0-0.4); Lymphocytes Absolute Auto 2.2 X10*3/uL (1.2-4.9); Lymphocytes Percent Auto 31.2 % (20-40); Mean Corpuscular HGB Conc 33.8 g/dl (31.0-36.0); Mean Corpuscular Hemoglobin 29.4 pg (27.0-33.0); Mean Platelet Volume 9.5 fL (9.4-12.4); Monocytes Absolute Auto 0.6 X10*3/uL (0.1-1.2); Monocytes Percent Auto 8.7 % (2-11); Neutrophils Absolute Auto 3.9 x10*3/uL (2.0-8.3); Neutrophils Percent Auto 56.8 % (45-73); Platelet Count 279 X10*3/uL (160-400); Red Blood Count 5.31 X10*6/uL (4.60-5.80); Red Cell Distribution Width 13.1 % (11.0-16.0); White Blood Count 6.9 X10*3/uL (4.8-10.8)
[2023-02-12 10:18] LABS: Appearance Urine Cloudy; Color Urine Yellow; Glucose Urine UA Negative (Negative); Leukocyte Esterase Urine Trace (Negative); Nitrite Urine Negative (Negative); PH 5.5 (5.0-9.0); UMIC TRIGGER UACC YES; Urine Blood Large (3+) (Negative); Urine Ketones Negative (Negative); Urine Protein Trace mg/dL (Neg-Trace)
[2023-02-12 10:20] LABS: Bacteria Urine None Seen (None Seen); RBC Urine >20 /HPF (0-2); Squamous Epithelial Cell Urine 0-2 /HPF (0-2); UACC Culture Trigger YES
[2023-02-12 10:31] LABS: Alanine Aminotransferase 33 U/L (0-40); Albumin Level 4.2 g/dL (3.5-5.0); Alkaline Phosphatase 81 U/L (39-117); Anion Gap 12 (12-20); Aspartate Amino Transferase 25 U/L (5-37); Bilirubin Direct 0.3 mg/dL (0.0-0.5); Bilirubin Total 0.7 mg/dL (0.0-1.0); Blood Urea Nitrogen 11 mg/dL (9-16); Calcium 9.3 mg/dL (8.4-10.2); Carbon Dioxide 28 mmol/L (22-29); Chloride 104 mmol/L (96-108); Creatinine Clr Calc Pharmacy 188.7; Estimated Glomerular Filt Rate > 60; Glucose Random 108 mg/dL (60-115); Lipase 11 U/L (8-78); Potassium 3.7 mmol/L (3.3-5.1); Sodium 140 mmol/L (135-145); Total Protein 7.8 g/dL (6.5-8.0)
--- NOTE | 2023-02-12 12:12 | ED.GENADULT ---
HPI - General Adult General Chief complaint: Abdominal Pain Stated complaint: L side back pain Time Seen by Provider: 02/12/23 12:12 Source: patient Mode of arrival: ambulatory Limitations: no limitations History of Present Illness HPI narrative: Patient is a 32 year old assigned male at with a history of HTN and kidney stones presenting to the emergency department today with left flank pain and nausea. Patient states that over the last day he has had left sided flank pain that radiates into his abdomen and nausea. Patient states that this has happened before when he has kidney stones. Patient denies any dizziness, lightheadedness, vomiting, fever, chills, blurry vision, double vision, loss of vision, chest pain, difficulty breathing, shortness of breath, back pain, night sweats, pain with urination, increased urinary frequency, increased urinary urgency, blood in his urine or stool, syncope or a near syncopal episode, recent trauma or falls, bowel incontinence, bladder incontinence, bowel retention, bladder retention, or any other complaints at this time. Onset (ago): day(s) Location: abdomen and left (flank and abdominal pain) Severity: mild Severity scale (1-10): 3 Quality: aching and dull Pain Consistency: constant Relieving factors: none Exacerbating factors: none Associated symptoms: nausea/vomiting Treatments prior to arrival: none Related Data Previous Rx's Medication Instructions Recorded metoprolol succinate 50 mg 50 mg PO DAILY 90 days #90 tabs 10/12/22 tablet,extended release 24 hr hydrochlorothiazide 12.5 mg tablet 12.5 mg PO DAILY 30 days #30 tabs 01/06/23 naproxen 500 mg tablet 500 mg PO BID 7 days #14 tabs 02/12/23 prednisone 20 mg tablet 20 mg PO DAILY 7 days #7 tabs 02/12/23 tamsulosin 0.4 mg capsule 0.4 mg PO DAILY #7 caps 02/12/23 Allergies Allergy/AdvReac Type Severity Reaction Status Date / Time pineapple Allergy Severe throat Verified 10/12/22 13:14 swelling Review of Systems Constitutional: Constitutional: Reports no additional constitutional complaints, Denies chills, Denies fever(s) and Denies night sweats Eyes: Eyes: Reports no additional eye complaints, Denies blurry vision, Denies change in vision, Denies diplopia, Denies eye discharge, Denies loss of vision and Denies eye pain ENT: Denies dizziness Cardiovascular: Cardiovascular: Reports no additional cardiovascular complaints, Denies chest pain, Denies lightheadedness, Denies Loss of Consciousness and Denies dyspnea Respiratory: Respiratory: Reports no additional respiratory complaints and Denies dyspnea Gastrointestinal: Gastrointestinal: Reports no additional gastrointestinal complaints, Reports abdominal pain, Denies melena, Denies hematochezia, Denies change in bowel habits, Denies change in stool character, Reports nausea and Denies vomiting Genitourinary: Genitourinary: Reports no additional male genitourinary complaints, Denies hematuria, Denies oliguria, Denies difficulty urinating, Denies dysuria, Reports flank pain (left), Denies urinary frequency, Denies urinary hesitancy, Denies urinary incontinence and Denies urinary urgency Musculoskeletal: Musculoskeletal: Reports no additional musculoskeletal complaints, Denies numbness and Denies tingling Neurologic: Denies dizziness, Denies loss of vision, Denies numbness and Denies tingling Psychiatric: Psychiatric: Reports no additional psychiatric complaints Endocrine: Endocrine: Reports no additional endocrine complaints Hematologic/Lymphatic: Hematologic/Lymphatic: Reports no additional hematologic/lymphatic complaints Allergic/Immunologic: Allergic/Immunologic: Reports no additional allergic/immunologic complaints PMFSH Past Medical History Attestation statement: The following information was validated with the patient. Source: old records reviewed and nursing notes reviewed Medical History Morbidly obese Snores Obesity Elevated liver enzymes Physical exam Abnormal EKG Family History Family History Father Diabetes Cancer Mother Diabetes High blood pressure Social History Housing: Apartment Alcohol intake: current Alcohol intake frequency: a few times a month Patient Tobacco Use Status: Never used Tobacco e-Cigarette/Vaping Use: Never Used Second Hand Smoke Exposure: Yes Advance Directives: No service: No Current occupational status: employed Current occupation: [employer] Current occupational exposures/hazards: Yes Cognitive needs: No Hearing needs: No Vision needs: No Physical Exam ED Vital Signs: Vital Signs - 24 hr 02/12/23 09:40 02/12/23 12:33 Temperature 97.9 F Pulse Rate 73 60 Respiratory Rate 20 16 Blood Pressure 127/83 128/84 Pulse Oximetry 98 95 Oxygen Delivery Method Room Air Room Air BMI result Body Mass Index 45.7 Const General: cooperative, no acute distress, alert and awake Nutritional Appearance: well nourished Orientation/consciousness: patient oriented x3 Limitations: no limitations HENMT Head: Yes normal to inspection and Yes atraumatic Ears: hearing grossly normal bilaterally and external ears normal General nose exam: Normal external nose present, no nasal discharge noted and no epistaxis Face and sinus: Yes normal facial exam, No abrasion and No laceration Mouth: Normal oral and palatal mucosa present, no drooling and no muffled voice Eyes General: appearance normal, both eyes and all related structures Periorbital: periorbital findings normal Eyelids: Yes eyelids normal Conjunctivae: conjunctivae normal Pupils: Equal, round and reactive pupils present EOM: EOMs intact bilaterally Neck Neck: Yes normal visual inspection, Yes full ROM and Yes no lymphadenopathy Chest Chest palpation & inspection: normal inspection of the chest Resp Effort & Inspection: normal respiratory effort and able to speak in complete sentences GI Inspection: Yes normal to inspection Palpation (GI): Soft to palpation, not firm, nontender and no guarding Neuro General: patient oriented x3 and moves all extremities Cranial nerves: Yes Equal, round and reactive pupils present Cognition (Neuro): normal cognition Motor exam (neuro): 5/5 motor strength present throughout Sensory Exam: Normal double simultaneous stimulation for sensation Coordination: [id number] test normal Extrem General: Yes normal to inspection, Yes full ROM and Yes capillary refill normal Psych Appearance: grossly normal Mental Status: mental status grossly normal Affect: normal affect Attitude: cooperative Thought process: Normal thought process present Thought content: Normal thought content present Insight: Good insight present (Psych) Medications Administered Discontinued Medications Generic Name Dose Route Start Last Admin Trade Name Freq PRN Reason Stop Dose Admin Ketorolac Tromethamine 15 mg 02/12/23 12:29 02/12/23 12:34 Ketorolac Tromethamine 15 Mg/Ml Vial IM 02/12/23 12:30 15 mg ONCE ONE Administration Medical Decision Making Medical Decision Making [facility] Narrative: Patient is a 32 year old assigned male at with a history of HTN and kidney stones presenting to the emergency department today with left flank pain and left sided abdominal pain. Patient's physical exam was unremarkable. Patient's blood work was unremarkable. Patient's urine showed no acute infection. Patient's abdomen/pelvis CT showed a 5mm stone in the distal left ureter with mild left sided hydroureteronephrosis. I explained my physical exam findings as well as all test results to the patient. I answered all questions asked by the patient. Patient received IM Toradol which he stated helped his symptoms significantly. I stressed the importance of the patient taking his medication as prescribed. I stressed the importance of the patient following up with his primary care provider and a urologist. I stressed the importance of the patient returning to the emergency department immediately if his symptoms were to worsen or if he were to develop any dizziness, shortness of breath, difficulty breathing, chest pain, blurry vision, loss of vision, nausea, vomiting, abdominal pain, fever, chills, back pain, or any other complaints. Patient verbalized agreement and understanding with this treatment plan and discharge. Differential Diagnosis Differential Diagnoses: The differential diagnosis associated with the presentation includes Left renal stone Left flank pain Admission/Observation Consideration of admission/observation: Escalation of care including admission/observation considered Patient would have been admitted to the hospital had his work up had any findings where hospital admission was appropriate and his clinical presentation warranted hospital admission. Lab Data MDM Lab Attestation statement: I reviewed the patient's lab results. My interpretation of these studies and their corresponding values is that they are grossly normal. 02/12/23 09:52 02/12/23 09:52 Labs: Lab Results 02/12/23 Range/Units 09:52 WBC 6.9 (4.8-10.8) X10*3/uL RBC 5.31 (4.60-5.80) X10*6/uL Hgb 15.6 (14.0-18.0) g/dl Hct 46.2 (42.0-52.0) % MCV 87.0 (80.0-98.0) fL MCH 29.4 (27.0-33.0) pg MCHC 33.8 (31.0-36.0) g/dl RDW 13.1 (11.0-16.0) % Plt Count 279 (160-400) X10*3/uL MPV 9.5 (9.4-12.4) fL Immature Gran % (Auto) 0.1 (0.0-0.4) % Neut % (Auto) 56.8 (45-73) % Lymph % (Auto) 31.2 (20-40) % [place] % (Auto) 8.7 (2-11) % Eos % (Auto) 2.3 (0-4) % Baso % (Auto) 0.9 (0-2) % Lymph # (Auto) 2.2 (1.2-4.9) X10*3/uL [place] # (Auto) 0.6 (0.1-1.2) X10*3/uL Eos # (Auto) 0.2 (0.0-0.4) X10*3/uL Baso # (Auto) 0.1 (0.0-0.2) X10*3/uL Abs Immat Gran (auto) 0.01 (0.00-0.03) X10*3/uL Absolute Neuts (auto) 3.9 (2.0-8.3) x10*3/uL Absolute Nucleated RBC 0.000 (0.0-0.012) X10*3/uL Nucleated RBC % (auto) 0.0 (0.0-0.2) /100WBC Sodium 140 (135-145) mmol/L Potassium 3.7 (3.3-5.1) mmol/L Chloride 104 (96-108) mmol/L Carbon Dioxide 28 (22-29) mmol/L Anion Gap 12 (12-20) BUN 11 (9-16) mg/dL Creatinine 0.84 (0.5-1.4) mg/dL Estim Creat Clear Calc 188.7 Estimated GFR > 60 Random Glucose 108 (60-115) mg/dL Calcium 9.3 (8.4-10.2) mg/dL Total Bilirubin 0.7 (0.0-1.0) mg/dL Direct Bilirubin 0.3 (0.0-0.5) mg/dL AST 25 (5-37) U/L ALT 33 (0-40) U/L Alkaline Phosphatase 81 (39-117) U/L Total Protein 7.8 (6.5-8.0) g/dL Albumin 4.2 (3.5-5.0) g/dL Lipase 11 (8-78) U/L Urine Color Yellow Urine Appearance Cloudy Urine pH 5.5 (5.0-9.0) Ur Specific [place] 1.020 (1.005-1.025) Urine Protein Trace (Neg-Trace) mg/dL Urine Glucose (UA) Negative (Negative) mg/dL Urine Ketones Negative (Negative) mg/dL Urine Blood Large (3+) H (Negative) Urine Nitrite Negative (Negative) Ur Leukocyte Esterase Trace H (Negative) Urine RBC >20 H (0-2) /HPF Urine WBC 6-10 H (0-5) /HPF Ur Squamous Epith Cells 0-2 (0-2) /HPF Urine Bacteria None Seen (None Seen) Hyaline Casts 3-5 (0-2) /LPF Independent Interpretation I performed an independent interpretation of an: CT Scan Interpretation: My interpretation is in agreement with the radiologist's impression of this imaging study. EXAMINATION: CT ABDOMEN AND PELVIS WITHOUT CONTRAST CLINICAL INFORMATION: Flank pain. COMPARISON: Abdominal ultrasound 07/06/2022. TECHNIQUE: Multidetector volumetric imaging was performed from the superior aspect of the liver through the pubic symphysis. Sagittal and coronal reformatted images were obtained on the technologist's workstation. This CT examination was performed using dose optimization techniques as appropriate, variously including the following: *Automated exposure control *Adjustment of mA and/or kV according to patient size (this includes techniques or standardized protocols for targeted exams where dose is matched to indication/reason for exam; i.e. extremities or head) *Use of iterative reconstruction technique DLP: 1126 mGy-cm FINDINGS: The lack of intravenous contrast limits evaluation of the solid visceral organs including the liver, spleen, pancreas, and kidneys. LUNG BASES: The visualized lung bases are unremarkable. LIVER, GALLBLADDER, AND BILIARY TREE: Decreased attenuation of liver parenchyma consistent with hepatic steatosis, otherwise liver is normal in size and shape. No focal hepatic lesion or biliary ductal dilatation is present. The gallbladder is unremarkable with no evidence of radiopaque gallstones, gallbladder wall thickening, or obvious pericholecystic inflammatory changes. PANCREAS: Unremarkable. SPLEEN: Unremarkable. ADRENAL GLANDS: Unremarkable. KIDNEYS AND URETERS: Mild left-sided hydroureteronephrosis with a 0.5 cm calculus in the distal left ureter at approximately 1 cm from the ureterovesical junction (3:772). Nonobstructive 0.6 cm calculus in the upper pole of the left kidney situated at 11.5 cm from the skin surface of the posterior axillary line (3:343). A few additional punctate nonobstructive calculi in the upper left kidney. No right-sided calculi. No significant perinephric fat stranding. BLADDER: Unremarkable. GASTROINTESTINAL TRACT: The stomach and the small bowel are nondilated. Normal appendix. Mild colonic diverticulosis is without findings to suspect acute diverticulitis. No bowel obstruction. ABDOMINAL WALL: No significant hernia is appreciated. LYMPH NODES: No lymphadenopathy by CT short axis size criteria. VASCULAR: Normal caliber abdominal aorta. PELVIC VISCERA: Unremarkable. OSSEOUS STRUCTURES: No acute or aggressive appearing osseous findings. Degenerative changes of the spine. CT/CT abdomen pelvis wo IV con IMPRESSION: 1. Mild left-sided hydroureteronephrosis with a 0.5 cm calculus in the distal left ureter. 2. Additional nonobstructive calculi in the upper pole of the left kidney. 3. Hepatic steatosis. 4. Diverticulosis but no evidence of acute diverticulitis. Dictated By: Josette Giordano Signed By: Electronically signed by Josette Giordano 02/12/2023 1222 Radiology Impression Discussion of test interpretation with radiology: I have reviewed the radiologist's reading. Prescription Management I considered prescription management with: Pain Medication (patient prescribed pain medication) Discharge Plan Discharge Clinical Impression: Kidney calculi Patient Disposition: Home, Self-Care Instructions: Kidney Stones (ED) Additional Instructions: Follow up with your primary care provider and a urologist. Take your medication as prescribed. Return to the emergency department immediately if your symptoms worsen or if you develop any dizziness, shortness of breath, difficulty breathing, chest pain, blurry vision, loss of vision, nausea, vomiting, abdominal pain, fever, chills, back pain, or any other complaints. Prescriptions: New prednisone 20 mg tablet 20 mg PO DAILY 7 Days Qty: 7 0RF tamsulosin 0.4 mg capsule 0.4 mg PO DAILY Qty: 7 0RF naproxen 500 mg tablet 500 mg PO BID 7 Days Qty: 14 0RF No Action hydrochlorothiazide 12.5 mg tablet 12.5 mg PO DAILY 30 Days Qty: 30 2RF metoprolol succinate 50 mg tablet extended release 24 hr 50 mg PO DAILY 90 Days Qty: 90 1RF Referrals: [facility] [Provider Group] (Call to establish and follow up with a urologist.) Marck Pack, [employer] [Primary Care Provider] - Interventions: ED Discharge Assessment Last Done: 02/12/23 12:41 Discharge Date/Time: 02/12/23 12:42 Print Language: Hungarian
[2023-02-12 12:33] VITALS: BP 128/84; PULSE 60; RESP 16; O2SAT 95
[2023-02-12] MEDS: Ketorolac Tromethamine 15 MG/ML VIAL IM (12:34)
== END 2023-02-12 12:42 | disposition home or self-care (01) ==
PROVIDERS: Emergency Provider Emergency Medicine; PCP Nurse Practitioner Family
DX: N13.2 Hydronephrosis with renal and ureteral calculous obstruction (principal); R11.2 Nausea with vomiting, unspecified; E66.01 Morbid (severe) obesity due to excess calories; Z68.42 Body mass index [BMI] 45.0-49.9, adult
CPT/HCPCS: 36415; 74176; 80053; 81001; 82248; 83690; 85025; 87086; 96372; 99284; J1885

== ENCOUNTER 2023-02-15 10:07 | Outpatient (AMB) | payer OTHER, SELFPAY ==
--- NOTE | 2023-02-15 10:19 | MHC.PC.OV ---
Vital Signs 02/15/23 10:21 Weight 334 lb BP 110/82 Blood Pressure Location Lt brachial Position Sitting Pulse 69 Pulse Source Pulse Oximeter Pulse Oximetry (%) 96 Oxygen Delivery Method Room Air Intake Visit Reasons: 4 month f/u Intake Note: Patient here for Blood pressure follow up. Allergies pineapple Allergy (Severe, Verified 10/12/22 13:14) throat swelling Medication List - Last Reconciled 02/15/23 by KIMO Patel hydrochlorothiazide 12.5 mg PO DAILY 30 days metoprolol succinate ER 50 mg PO DAILY 90 days naproxen 500 mg PO BID 7 days prednisone 20 mg PO DAILY 7 days tamsulosin 0.4 mg PO DAILY Tobacco use date assessed: 10/12/22 Dental Screening Dental Screen Date: 02/15/23 Did you have a dental visit in the last 12 months?: No Did you have a dental problem in the last 6 months where you did not have access to dental care?: No Was dental information given to patient?: No HPI 4 month f/u HPI Details Pt was seen in the ER on 02/12 c/o left flank pain. He does have a hx of kidney stones. CT showed a 5mm stone in the distal left ureter with mild left sided hydroureteronephrosis. He was d/c with prednisone, naproxen, and tamsulosin. Pt reports that he has not current symptoms. Will refer to urology for further evaluation. Denies fever, chills, hematuria, pelvic pain, and flank pain. Pt reports increased GERD symptoms. Will send omeprazole. HTN: Blood pressure is stable, managed with hydrochlorothiazide 12.5mg and metoprolol 50mg. Denies chest pain, shortness of breath, headache, dizziness, and blurred vision. [facility] Medical History (Updated 02/15/23 @ 10:29 by KIMO Patel) Fatty liver Morbidly obese Snores Obesity Elevated liver enzymes Physical exam Abnormal EKG Family History Father Diabetes Cancer Mother Diabetes High blood pressure Social History Housing: Apartment Alcohol intake: current Alcohol intake frequency: a few times a month Patient Tobacco Use Status: Never used Tobacco e-Cigarette/Vaping Use: Never Used Second Hand Smoke Exposure: Yes service: No Current occupational status: employed Current occupation: [employer] Current occupational exposures/hazards: Yes Cognitive needs: No Hearing needs: No Vision needs: No Questionnaire Thrive Questionnaire Date Thrive assessed: 10/12/22 AUDIT C Alcohol Use Questionnaire (AUDIT-C) 1. How often do you have a drink containing alcohol?: Never 3. How often do you have six or more drinks on one occasion?: Never Total Score: 0 Score Reviewed/Action Taken: No MATHEW-7 AMB Questionnaire MATHEW-7 Date MATHEW - 7 assessed: 10/12/22 Source: Developed by Drs. Christian Laurent, Lise Waldrop, Clifford Maldonado and colleagues, with an educational cortez from [employer]. Review of Systems Const Reports as per HPI Physical exam (Primary Care) Vital Signs: Last Vital Signs Pulse 69 02/15/23 10:21 BP 110/82 02/15/23 10:21 Pulse Ox 96 02/15/23 10:21 Oxygen Delivery Method Room Air 02/15/23 10:21 Tobacco/Smoking Status: Tobacco use Status Tobacco use date assessed 10/12/22 02/15/23 10:21 Patient Tobacco Use Status Never used Tobacco 02/15/23 10:21 e-Cigarette/Vaping Use Never Used 02/15/23 10:21 Thrive Assessment: Date of Thrive Assessment Date Thrive assessed 10/12/22 02/15/23 10:21 Const General: cooperative Nutritional Appearance: obese morbidly obese Orientation/consciousness: patient oriented x3 Resp Effort & Inspection: normal respiratory effort Auscultation: clear to auscultation bilaterally Cardio Rate: regular rate Rhythm: regular rhythm Heart sounds: S1 normal heart sound present and S2 normal heart sound present General: Yes no CVA tenderness Back/Spine/Pelvis Back: no CVA tenderness Neuro General: patient oriented x3 Extrem Right lower extremity: no edema Left lower extremity: no edema Psych Appearance: grossly normal Mental Status: mental status grossly normal Speech and movement: Normal speech and movement present Affect: normal affect Attitude: cooperative Thought process: Normal thought process present Thought content: Normal thought content present Insight: Good insight present (Psych) Judgement: Good judgement present (Psych) Assessment and Plan Assessment & Plan (1) HTN (hypertension): Code(s): I10 - Essential (primary) hypertension Plan: Continue current meds (2) Kidney calculi: Code(s): N20.0 - Calculus of kidney Plan: Referred to urology Plan The patient agreed to the use of a caregivers non medical for this encounter. Scribed for KIMO Sagastume by Daniella Long caregivers non medical, on 02/15/2023 at 10:30 EST. Orders: Referrals Urology Referral N20.0 - Calculus of kidney Medications: New omeprazole 20 mg PO DAILY 90 caps 0RF Coding Level of Care Code Est Pt Level 3 (75274) Diagnoses HTN (hypertension) I10 Kidney calculi N20.0
[2023-02-15 10:21] VITALS: BP 110/82; PULSE 69; O2SAT 96
== END 2023-02-15 10:47 | disposition home or self-care (01) ==
PROVIDERS: PCP Nurse Practitioner Family; Visit Provider Nurse Practitioner Family
DX: I10 Essential (primary) hypertension (principal); N20.0 Calculus of kidney
CPT/HCPCS: 99213

== ENCOUNTER 2023-03-21 08:53 | Outpatient (AMB) | payer OTHER, SELFPAY ==
--- NOTE | 2023-03-21 09:07 | MHC.OFFVIS ---
Intake Intake Visit Reasons: ER follow up/ small stone Intake Note: New Patient presents for initial visit for ER follow up kidney stone ER Visit: 02/12/23 Urology Medications: none Blood Thinner: none Usps Letter Carrier Required: No Accompanied by: Self / Same As Patient Allergies pineapple Allergy (Severe, Verified 03/21/23 21:20) throat swelling Medication List - Last Reconciled 03/21/23 by KIMO Molina hydrochlorothiazide 12.5 mg PO DAILY 30 days metoprolol succinate ER 50 mg PO DAILY 90 days HPI HPI Comments History of Present Illness Details Jaskaran Pacheco is a very pleasant 32-year-old male patient of Dr. Pack. He has a past medical history of fatty liver, obesity, elevated liver enzymes, and nephrolithiasis. He presents to the office today as a new patient for nephrolithiasis. In discussion with the patient today reports having seeked emergency room care approximately 2 months ago for left-sided flank pain radiating to his abdomen at which time a CT of the abdomen was ordered and performed. These results reviewed with the patient today. Mild left-sided hydroureteronephrosis with a 0.5 cm calculus in the distal left ureter. Additional nonobstructive calculi in the upper pole of the left kidney. He reports having a previous history of nephrolithiasis however has never required surgical intervention. When asked he does report to be drinking plenty of water daily. He reports flank pain has since subsided. He denies having seen any renal calculi upon urination. Discussed at length potential causes of nephrolithiasis. He discusses possible episode of nephrolithiasis being related to new diet for his diagnosis of fatty liver. Discussed obtaining retroperitoneal ultrasound for further assessment evaluation. When asked he does report urinary frequency however does not find this bothersome as he relates it to his increased consumption of water. He otherwise denies urinary urgency, urinary frequency, incontinence, nocturia, hematuria, dysuria, foul smelling urine, changes to urinary stream, flank pain, fever, and or chills. He is happy with his current voiding parameters. In office urinalysis results reviewed with the patient today. Discussed further metabolic workup with 24 hour urine collection as well as labs. [facility] Medical History Fatty liver Morbidly obese Snores Obesity Elevated liver enzymes Physical exam Abnormal EKG Family History Father Diabetes Cancer Mother Diabetes High blood pressure Social History Housing: Apartment Alcohol intake: current Alcohol intake frequency: a few times a month Patient Tobacco Use Status: Never used Tobacco e-Cigarette/Vaping Use: Never Used Second Hand Smoke Exposure: Yes service: No Current occupational status: employed Current occupation: [id number] Current occupational exposures/hazards: Yes Cognitive needs: No Hearing needs: No Vision needs: No Review of Systems Const Reports as per HPI Eyes Reports no additional complaints ENT Reports no additional complaints Card Reports as per HPI Resp Reports no additional complaints GI Reports as per HPI Reports as per HPI Musc Reports no additional complaints Neuro Reports no additional complaints Psych Reports no additional complaints Endo Reports no additional complaints Reymundo/Lymph Reports no additional complaints Aller/Immun Reports no additional complaints Physical Exam Const General: cooperative, healthy appearing, comfortable, no acute distress, well developed, alert and awake Nutritional Appearance: overweight Orientation/consciousness: patient oriented x3 Limitations: no limitations HEENT Head: Yes normal to inspection, Yes normocephalic and Yes atraumatic Ears: hearing grossly normal bilaterally Eyes General: appearance normal, both eyes and all related structures Neck Neck: Yes normal visual inspection and Yes trachea midline Chest Chest palpation & inspection: normal inspection of the chest Resp Effort & Inspection: normal respiratory effort and able to speak in complete sentences Cardio Rate: regular rate GI Inspection: Yes normal to inspection General: Yes no CVA tenderness Back/Spine/Pelvis Back: no CVA tenderness Skin General skin exam: no rashes or lesions noted Neuro General: patient oriented x3 Extrem General: Yes normal to inspection Psych Appearance: grossly normal and well kempt Mental Status: mental status grossly normal Speech and movement: Normal speech and movement present and Clear speech present Affect: normal affect Attitude: cooperative Thought process: Normal thought process present Thought content: Normal thought content present Insight: Fair insight present (Psych) Judgement: Fair judgement present (Psych) Results AMB Urinalysis, Automated UA Leukoctes 0 Alison/uL Last Edit by Adonis Garcia on 03/21/23 09:24 UA Nitrite Negative Last Edit by Adonis Garcia on 03/21/23 09:24 UA Urobilinogen 0.2 mg/dL Last Edit by Adonis Garcia on 03/21/23 09:24 UA Protein 15 mg/dL Last Edit by Adonis Sallyadilene on 03/21/23 09:24 UA pH 6.0 Last Edit by Adonis Garcia on 03/21/23 09:24 UA Blood 25 Wil/uL Last Edit by Adonis Garcia on 03/21/23 09:24 UA Specific Eden 1.030 Last Edit by Adonis Garcia on 03/21/23 09:24 UA Ketone Negative Last Edit by Adonis Garcia on 03/21/23 09:24 UA Bilirubin 0 mg/dL Last Edit by Adonis Garcia on 03/21/23 09:24 UA Glucose 0 mg/dL Last Edit by Adonis Garcia on 03/21/23 09:24 Results Reviewed Results Reviewed: Laboratory Last Values Urine pH (Auto) 6.0 03/21/23 09:14 Specific Eden (Auto) 1.030 03/21/23 09:14 Urine Protein (Auto) 15 mg/dL 03/21/23 09:14 Glucose (UA)(Auto) 0 mg/dL 03/21/23 09:14 Urine Ketones (Auto) Negative 03/21/23 09:14 Urine Blood (Auto) 25 Wil/uL 03/21/23 09:14 Urine Nitrite (Auto) Negative 03/21/23 09:14 Urine Bilirubin (Auto) 0 mg/dL 03/21/23 09:14 Urine Urobilinogen (Auto) 0.2 mg/dL 03/21/23 09:14 Leukocyte Esterase (Auto) 0 Alison/uL 03/21/23 09:14 Date of Service: 02/12/23 EXAMINATION: CT ABDOMEN AND PELVIS WITHOUT CONTRAST FINDINGS: The lack of intravenous contrast limits evaluation of the solid visceral organs including the liver, spleen, pancreas, and kidneys. LUNG BASES: The visualized lung bases are unremarkable. LIVER, GALLBLADDER, AND BILIARY TREE: Decreased attenuation of liver parenchyma consistent with hepatic steatosis, otherwise liver is normal in size and shape. No focal hepatic lesion or biliary ductal dilatation is present. The gallbladder is unremarkable with no evidence of radiopaque gallstones, gallbladder wall thickening, or obvious pericholecystic inflammatory changes. PANCREAS: Unremarkable. SPLEEN: Unremarkable. ADRENAL GLANDS: Unremarkable. KIDNEYS AND URETERS: Mild left-sided hydroureteronephrosis with a 0.5 cm calculus in the distal left ureter at approximately 1 cm from the ureterovesical junction (3:772). Nonobstructive 0.6 cm calculus in the upper pole of the left kidney situated at 11.5 cm from the skin surface of the posterior axillary line (3:343). A few additional punctate nonobstructive calculi in the upper left kidney. No right-sided calculi. No significant perinephric fat stranding. BLADDER: Unremarkable. GASTROINTESTINAL TRACT: The stomach and the small bowel are nondilated. Normal appendix. Mild colonic diverticulosis is without findings to suspect acute diverticulitis. No bowel obstruction. ABDOMINAL WALL: No significant hernia is appreciated. LYMPH NODES: No lymphadenopathy by CT short axis size criteria. VASCULAR: Normal caliber abdominal aorta. PELVIC VISCERA: Unremarkable. OSSEOUS STRUCTURES: No acute or aggressive appearing osseous findings. Degenerative changes of the spine. IMPRESSION: 1. Mild left-sided hydroureteronephrosis with a 0.5 cm calculus in the distal left ureter. 2. Additional nonobstructive calculi in the upper pole of the left kidney. 3. Hepatic steatosis. 4. Diverticulosis but no evidence of acute diverticulitis. Assessment & Plan Assessment & Plan (1) Kidney calculi: Code(s): N20.0 - Calculus of kidney (2) Hydronephrosis concurrent with and due to calculi of kidney and ureter: Code(s): N13.2 - Hydronephrosis with renal and ureteral calculous obstruction Plan In office urinalysis results reviewed with the patient today; as noted above. Most recent renal imaging results reviewed with the patient today; as noted above. Discussed at length potential causes of nephrolithiasis. Start vitamin B6 as discussed and prescribed. Discussed obtaining retroperitoneal ultrasound for further assessment evaluation. Discussed further metabolic workup with 24 hour urine collection as well as labs. Discussed, educated, and stressed the importance of drinking plenty of water daily. Discussed adding 1 oz of lemon juice to water daily. Patient reports to be happy with current voiding parameters. Follow-up in 1 month with imaging to be completed prior; or sooner with any issues, concerns, and or questions. Orders: Orders AMB Urinalysis Automated Today Z13.9 - Encounter for screening, unspecified US retroperitoneal comp Today N13.2 - Hydronephrosis with renal and ureteral calculous obstruction, N20.0 - Calculus of kidney Medications: New pyridoxine (vitamin B6) 100 mg PO DAILY 90 days 90 tabs 1RF Patient Instructions: The patient had an opportunity to ask questions regarding the treatment plan. All questions were answered. Physical exam, labs, and imaging were discussed and reviewed in detail. As well as risks, benefits, and discussion of treatment choices. No major barriers to understanding were identified. The patient expressed understanding and agreement with the above treatment plan. The patient was made aware they should contact our office by phone for worsening of their current condition, the appearance of new symptoms, or with any questions or concerns. Compliance is encouraged with any medications and follow up testing that is ordered. It is a privilege to be allowed the opportunity to participate in? your urological care.? Again, if you have any questions or concerns If you have any questions or concerns please do not hesitate to contact me. The office is [phone]. This note is constructed using voice recognition software. While every effort has been made to ensure accuracy purchasing engineer errors may have been included. Yours sincerely, KIMO Molina Coding Level of Care Code New Pt Level 4 (44142) Diagnoses Kidney calculi N20.0 Hydronephrosis concurrent with and due to calculi of kidney and ureter N13.2
== END 2023-03-21 09:42 | disposition home or self-care (01) ==
PROVIDERS: PCP Nurse Practitioner Family; Visit Provider Nurse Practitioner Family
DX: N13.2 Hydronephrosis with renal and ureteral calculous obstruction (principal)
CPT/HCPCS: 99204

== ENCOUNTER → 2023-03-21 08:53 | Outpatient (BNVA) | payer OTHER, SELFPAY | PROVIDERS: PCP Nurse Practitioner Family; Visit Provider Nurse Practitioner Family | DX: N13.2 Hydronephrosis with renal and ureteral calculous obstruction (principal); N20.0 Calculus of kidney | CPT/HCPCS: 81003; 99202 ==

== ENCOUNTER 2023-04-19 09:57 | Outpatient (REF) | payer OTHER, SELFPAY ==
--- NOTE | ~2023-04-19 | US_ITS ---
EXAMINATION: US RETROPERITONEAL COMPLETE (RENAL) CLINICAL INFORMATION: Hydronephrosis with renal and ureteral calculus obstruction. COMPARISON: CT abdomen and pelvis without contrast 02/12/2023. Ultrasound abdomen limited 07/06/2022. Ultrasound abdomen complete 10/06/2021. TECHNIQUE: Real-time imaging of the kidneys and bladder. FINDINGS: RIGHT KIDNEY: 13.4 x 6.5 x 7.0 cm (SAG x AP x TRV). The kidney is normal in size, contour, and echogenicity. Renal cortical thickness is normal. No calculi or focal parenchymal lesions. No hydronephrosis. LEFT KIDNEY: 14.3 x 6.7 x 6.1 cm (SAG x AP x TRV). The kidney is normal in size, contour, and echogenicity. Renal cortical thickness is normal. No calculi or focal parenchymal lesions. No hydronephrosis. BLADDER: Well distended and normal. Bilateral ureteral jets are demonstrated. Prevoid bladder volume is 478 mL. Postvoid bladder volume is 5 mL. OTHER: Prostate dimensions are 3.9 x 3.1 x 3.2 cm (volume is 20.2 mL). US/US retroperitoneal comp IMPRESSION: Unremarkable examination.
== END 2023-04-19 09:58 | disposition home or self-care (01) ==
LOC: HO.US 09:57
PROVIDERS: PCP Nurse Practitioner Family; Visit Provider Nurse Practitioner Family
DX: N13.2 Hydronephrosis with renal and ureteral calculous obstruction (principal)
CPT/HCPCS: 76770

== ENCOUNTER 2023-05-03 14:05 | Outpatient (AMB) | payer OTHER, SELFPAY ==
--- NOTE | 2023-05-03 14:19 | A.OFFVIS_ITS ---
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 Pack. He has a past medical history of fatty liver, obesity, elevated liver enzymes, and nephrolithiasis. He presents to the office today for follow- up of his nephrolithiasis. Of note, patient was seen approximately 1 month ago as a new patient for nephrolithiasis with a CT that noted mild left-sided hydroureteronephrosis with a 0.5 cm calculus in the distal left ureter. During last office visit patient reported pain has since subsided however did not note himself to urinate his kideny stone therefore a renal ultrasound was ordered to ensure there is resolution of noted hydronephrosis. Recent renal imaging results reviewed with the patient today. Bilateral kidneys with no calculi, lesions, and or hydronephrosis. The bladder is well distended and normal. Bilateral ureteral jets are demonstrated. Pre void bladder volume is approximately 475 mL. Postvoid bladder volume is approximately 5 mL. Prostate measures approximately 20 mL. Discussed at length potential causes of nephrolithiasis. He discusses possible episode of nephrolithiasis being related to new diet for his diagnosis of fatty liver. When asked he does report urinary frequency however does not find this bothersome as he relates it to his increased consumption of water. He otherwise denies urinary urgency, urinary frequency, incontinence, nocturia, hematuria, dysuria, foul smelling urine, changes to urinary stream, flank pain, fever, and or chills. He is happy with his current voiding parameters. In office urinalysis results reviewed with the patient today. Discussed further metabolic workup with 24 hour urine collection as well as labs. [facility] Medical History Fatty liver Morbidly obese Snores Obesity Elevated liver enzymes Physical exam Abnormal EKG Family History Father Diabetes Cancer Mother Diabetes High blood pressure Social History Housing: Apartment Alcohol intake: current Alcohol intake frequency: a few times a month Patient Tobacco Use Status: Never used Tobacco e-Cigarette/Vaping Use: Never Used Second Hand Smoke Exposure: Yes service: No Current occupational status: employed Current occupation: [employer] Current occupational exposures/hazards: Yes Cognitive needs: No Hearing needs: No Vision needs: No Review of Systems Const Reports as per HPI Eyes Reports no additional complaints ENT Reports no additional complaints Card Reports as per HPI Resp Reports no additional complaints GI Reports as per HPI Reports as per HPI Musc Reports no additional complaints Neuro Reports no additional complaints Psych Reports no additional complaints Endo Reports no additional complaints Reymundo/Lymph Reports no additional complaints Aller/Immun Reports no additional complaints Physical Exam Const General: cooperative, healthy appearing, comfortable, no acute distress, well developed, alert and awake Nutritional Appearance: overweight Orientation/consciousness: patient oriented x3 Limitations: no limitations HEENT Head: Yes normal to inspection, Yes normocephalic and Yes atraumatic Ears: hearing grossly normal bilaterally Eyes General: appearance normal, both eyes and all related structures Neck Neck: Yes normal visual inspection and Yes trachea midline Chest Chest palpation & inspection: normal inspection of the chest Resp Effort & Inspection: normal respiratory effort and able to speak in complete sentences Cardio Rate: regular rate GI Inspection: Yes normal to inspection General: Yes no CVA tenderness Back/Spine/Pelvis Back: no CVA tenderness Skin General skin exam: no rashes or lesions noted Neuro General: patient oriented x3 Extrem General: Yes normal to inspection Psych Appearance: grossly normal and well kempt Mental Status: mental status grossly normal Speech and movement: Normal speech and movement present and Clear speech present Affect: normal affect Attitude: cooperative Thought process: Normal thought process present Thought content: Normal thought content present Insight: Fair insight present (Psych) Judgement: Fair judgement present (Psych) Results AMB Urinalysis, Automated UA Leukoctes 0 Alison/uL Last Edit by Adonis Garcia on 05/03/23 14:34 UA Nitrite Negative Last Edit by Adonis Garcia on 05/03/23 14:34 UA Urobilinogen 1 mg/dL Last Edit by Adonis Garcia on 05/03/23 14:34 UA Protein 0 mg/dL Last Edit by Adonis Garcia on 05/03/23 14:34 UA pH 7.0 Last Edit by Adonis Garcia on 05/03/23 14:34 UA Blood 0 Wil/uL Last Edit by Adonis Garcia on 05/03/23 14:34 UA Specific [place] 1.020 Last Edit by [employer]antwon Garcia on 05/03/23 14:34 UA Ketone Negative Last Edit by [employer] Garcia on 05/03/23 14:34 UA Bilirubin 0 mg/dL Last Edit by [employer] Garcia on 05/03/23 14:34 UA Glucose 0 mg/dL Last Edit by Adonis Garcia on 05/03/23 14:34 Results Reviewed Results Reviewed: Laboratory Last Values Urine pH (Auto) 7.0 05/03/23 14:24 Specific [place] (Auto) 1.020 05/03/23 14:24 Urine Protein (Auto) 0 mg/dL 05/03/23 14:24 Glucose (UA)(Auto) 0 mg/dL 05/03/23 14:24 Urine Ketones (Auto) Negative 05/03/23 14:24 Urine Blood (Auto) 0 Wil/uL 05/03/23 14:24 Urine Nitrite (Auto) Negative 05/03/23 14:24 Urine Bilirubin (Auto) 0 mg/dL 05/03/23 14:24 Urine Urobilinogen (Auto) 1 mg/dL 05/03/23 14:24 Leukocyte Esterase (Auto) 0 Alison/uL 05/03/23 14:24 Date of Service: 04/19/23 EXAMINATION: US RETROPERITONEAL COMPLETE (RENAL) FINDINGS: RIGHT KIDNEY: 13.4 x 6.5 x 7.0 cm (SAG x AP x TRV). The kidney is normal in size, contour, and echogenicity. Renal cortical thickness is normal. No calculi or focal parenchymal lesions. No hydronephrosis. LEFT KIDNEY: 14.3 x 6.7 x 6.1 cm (SAG x AP x TRV). The kidney is normal in size, contour, and echogenicity. Renal cortical thickness is normal. No calculi or focal parenchymal lesions. No hydronephrosis. BLADDER: Well distended and normal. Bilateral ureteral jets are demonstrated. Prevoid bladder volume is 478 mL. Postvoid bladder volume is 5 mL. OTHER: Prostate dimensions are 3.9 x 3.1 x 3.2 cm (volume is 20.2 mL). IMPRESSION: Unremarkable examination. Assessment & Plan Assessment & Plan (1) Kidney calculi: Code(s): N20.0 - Calculus of kidney (2) Hydronephrosis concurrent with and due to calculi of kidney and ureter: Code(s): N13.2 - Hydronephrosis with renal and ureteral calculous obstruction Plan In office urinalysis results reviewed with the patient today; as noted above. Recent renal imaging results reviewed with the patient today; as noted above Discussed at length potential causes of nephrolithiasis. Continue vitamin B6 as discussed and prescribed. Discussed further metabolic workup with 24 hour urine collection as well as labs; will continue with surveillance monitoring at this time. Discussed, educated, and stressed the importance of drinking plenty of water daily. Discussed adding 1 oz of lemon juice to water daily. Patient reports to be happy with current voiding parameters. Will obtain renal ultrasound in 6 months Follow-up in 6 months with imaging to be completed prior; or sooner with any issues, concerns, and or questions. Orders: Orders US renal BI 6 Months N20.0 - Calculus of kidney AMB Urinalysis Automated Today Z13.9 - Encounter for screening, unspecified Patient Instructions: The patient had an opportunity to ask questions regarding the treatment plan. All questions were answered. Physical exam, labs, and imaging were discussed and reviewed in detail. As well as risks, benefits, and discussion of treatment choices. No major barriers to understanding were identified. The patient expressed understanding and agreement with the above treatment plan. The patient was made aware they should contact our office by phone for worsening of their current condition, the appearance of new symptoms, or with any questions or concerns. Compliance is encouraged with any medications and follow up testing that is ordered. It is a privilege to be allowed the opportunity to participate in? your urological care.? Again, if you have any questions or concerns If you have any questions or concerns please do not hesitate to contact me. The office is [phone]. This note is constructed using voice recognition software. While every effort has been made to ensure accuracy parking cashier errors may have been included. Yours sincerely, RITO Molina-MINERVA Coding Level of Care Code Est Pt Level 3 (56220) Diagnoses Kidney calculi N20.0 Hydronephrosis concurrent with and due to calculi of kidney and ureter N13.2
== END 2023-05-03 14:44 | disposition home or self-care (01) ==
PROVIDERS: PCP Nurse Practitioner Family; Visit Provider Nurse Practitioner Family
DX: N13.2 Hydronephrosis with renal and ureteral calculous obstruction (principal); Z13.9 Encounter for screening, unspecified
CPT/HCPCS: 99213

== ENCOUNTER → 2023-05-03 14:05 | Outpatient (BNVA) | payer OTHER, SELFPAY | PROVIDERS: PCP Nurse Practitioner Family; Visit Provider Nurse Practitioner Family | DX: N13.2 Hydronephrosis with renal and ureteral calculous obstruction (principal) | CPT/HCPCS: 81003; 99212 ==

== ENCOUNTER 2023-08-16 13:16 | Outpatient (AMB) | payer OTHER, SELFPAY ==
[2023-08-16 13:28] VITALS: BP 120/76; PULSE 70; O2SAT 97; BMI 45.6
--- NOTE | 2023-08-16 13:28 | MHC.PC.OV ---
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 Allergies pineapple Allergy (Severe, Verified 08/16/23 13:38) throat swelling Medication List - Last Reconciled 08/16/23 by RITO Montalvo hydrochlorothiazide 12.5 mg PO DAILY metoprolol succinate ER 50 mg PO DAILY 90 days pyridoxine (vitamin B6) 100 mg PO DAILY 90 days Tobacco use date assessed: 08/16/23 Dental Screening Dental Screen Date: 08/16/23 Did you have a dental visit in the last 12 months?: Yes Did you have a dental problem in the last 6 months where you did not have access to dental care?: No Was dental information given to patient?: Patient has dentist HPI HPI Comments History of Present Illness Details Patient is a 32-year-old male in today for his physical exam. Patient is up-to-date with Tdap next booster is due 2027. Patient has a past medical history significant for: Hypertension-currently controlled with metoprolol and hydrochlorothiazide 12.5 mg Nephrolithiasis- patient has established care with Urology. Patient instructed to intake B6 and plenty of fluids. Dysphagia-patient has occasional feeling of carbonated beverages getting stuck in his throat. Prior ER visit for this. Will refer to GI. Right knee pain-no x-ray on file will order. Will order fasting labs. [facility] Medical History (Updated 08/16/23 @ 13:56 by RITO Montalvo) Physical exam Fatty liver Morbidly obese Snores Obesity Elevated liver enzymes Abnormal EKG Surgical History No pertinent past surgical history Family History Father Diabetes Cancer Mother Diabetes High blood pressure Social History Housing: Apartment Alcohol intake: current Alcohol intake frequency: a few times a month Patient Tobacco Use Status: Never used Tobacco e-Cigarette/Vaping Use: Never Used Second Hand Smoke Exposure: Yes service: No Current occupational status: employed Current occupation: [employer] Current occupational exposures/hazards: Yes Cognitive needs: No Hearing needs: No Vision needs: No Questionnaire PHQ-9 Over the last 2 weeks, how often have you been bothered by any of the following problems? 1. Little interest or pleasure in doing things: not at all 2. Feeling down, depressed, or hopeless: not at all 3. Trouble falling or staying asleep, or sleeping too much: not at all 4. Feeling tired or having little energy: not at all 5. Poor appetite or overeating: not at all 6. Feeling bad about yourself - or that you are a failure or have let yourself or your family down: not at all 7. Trouble concentrating on things, such as reading the newspaper or watching television: not at all 8. Moving or speaking so slowly that other people could have noticed. Or the opposite - being so fidgety or restless that you have been moving around a lot more than usual: not at all 9. Thoughts that you would be better off or of hurting yourself in some way: not at all Total score: 0 Depression Screening Interpretation: Negative Depression Screening Done: Yes 85307 - PHQ-9 Billing: Yes Source: Developed by Drs. Christian Laurent, Lise Waldrop, Clifford Maldonado and colleagues, with an educational cortez from [employer]. Thrive Questionnaire Date Thrive assessed: 08/16/23 I am a: Patient What is your living situation today?: I have a steady place to live Within the past 12 months, did the food you bought not last and you didn't have the money to get more?: Never true Within the past 12 months, did you worry whether your food would run out before you got money to buy more?: Never true Do you have trouble paying for medicines?: No Do you have trouble getting transportation to medical appointments?: No Do you have trouble paying your heating and electricity bill?: No Do you have trouble taking care of your child, family member or friend?: No Do you have trouble with day-to-day activities such as bathing, preparing meals, shopping, managing finances, etc.?: No Are you currently unemployed and looking for a job?: No Are you interested in more education?: No Please select the resources that you would like help with: None Currently or been in a relationship where the following occur: no concerns reported THRIVE Score: 0 AUDIT C Alcohol Use Questionnaire (AUDIT-C) 1. How often do you have a drink containing alcohol?: Never 3. How often do you have six or more drinks on one occasion?: Never Total Score: 0 Score Reviewed/Action Taken: Yes MATHEW-7 AMB Questionnaire MATHEW-7 Date MATHEW - 7 assessed: 08/16/23 Feeling nervous, anxious, or on edge: 0 = Not at all Not being able to stop or control worryin = Not at all Worrying too much about different things: 0 = Not at all Trouble relaxin = Not at all Being so restless that it is hard to sit still: 0 = Not at all Becoming easily annoyed or irritable: 0 = Not at all Feeling afraid as if something awful might happen: 0 = Not at all Total MATHEW-7 score (0-4 normal; 5-9 mild; 10-14 moderate; 15-21 severe): 0 Source: Developed by Drs. Christian Laurent, Lise Waldrop, Clifford Maldonado and colleagues, with an educational cortez from [employer]. MATHEW-7 Assessment Billing MATHEW-7 Assessment Tool: MATHEW-7 Assessment 25214 Review of Systems Const All systems reviewed & are unremarkable except as noted in HPI and below Physical exam (Primary Care) Care Plan Goal for BP management: Blood pressure control. Next steps: Take blood pressure measurements at home. BMI Assessment/Plan discussion: Declined counseling Tobacco/Smoking Status: Tobacco use Status Tobacco use date assessed 10/12/22 02/15/23 10:21 Patient Tobacco Use Status Never used Tobacco 02/15/23 10:21 e-Cigarette/Vaping Use Never Used 02/15/23 10:21 Depression Screening Interpretation: Negative Thrive Assessment: Date of Thrive Assessment Date Thrive assessed 10/12/22 02/15/23 10:21 Currently or been in a relationship where the following occur: no concerns reported Const Other: Appearance: Alert.? Oriented X3.? No acute distress.? Head: Normocephalic, atraumatic, Eyes: Pupils equal, round and reactive to light.? ENT: Pharynx normal.?TM intact and pearly frank. Neck: Normal inspection.? Neck supple.?Full ROM. Normal carotid upstroke. CVS: Normal heart rate and rhythm.? Pulses normal.? Respiratory: No respiratory distress.? Breath sounds normal.? Abdomen: Soft and nontender.? : Declined. Skin: Skin warm and dry.? Normal skin color.? Normal skin turgor.? Extremities: No lower extremity edema. 5/5 strength to bilateral upper and lower extremities Back: No midline tenderness, no C-spine tenderness, full range of motion, no CVA tenderness bilaterally Neuro: Oriented X 3.? No motor deficit.? No sensory deficit. CN 2-12 intact Assessment and Plan Assessment & Plan (1) Physical exam: Comment: Will draw fasting labs. Patient up-to-date with Tdap. Code(s): Z00.00 - Encounter for general adult medical examination without abnormal findings (2) HTN (hypertension): Comment: Control with metoprolol on hydrochlorothiazide Code(s): I10 - Essential (primary) hypertension Qualifiers: Hypertension type: primary hypertension Qualified Code(s): I10 - Essential (primary) hypertension (3) Fatty liver: Comment: Patient currently trying to lose weight with increased activity and diet. Code(s): K76.0 - Fatty (change of) liver, not elsewhere classified (4) Hydronephrosis concurrent with and due to calculi of kidney and ureter: Comment: Establish care with Urology, drinking plenty of fluids and taking be 6 vitamin Code(s): N13.2 - Hydronephrosis with renal and ureteral calculous obstruction (5) Right knee pain: Comment: Will order x-ray. Will give patient diclofenac sodium topical gel. Code(s): M25.561 - Pain in right knee Qualifiers: Chronicity: acute Qualified Code(s): M25.561 - Pain in right knee (6) Dysphagia: Comment: Intermittent. More frequent with carbonated beverages. Will refer to GI. Code(s): R13.10 - Dysphagia, unspecified Qualifiers: Dysphagia type: unspecified Qualified Code(s): R13.10 - Dysphagia, unspecified Plan: Draw labs for Plan Follow-up and 6 months. Orders: Orders Comprehensive Met. Panel Today Z91.89 - Other specified personal risk factors, not elsewhere classified Lipid Panel Today Z13.220 - Encounter for screening for lipoid disorders Vitamin B12 Today Z13.21 - Encounter for screening for nutritional disorder UA CC w/rflx Micro + Cult Today Z13.89 - Encounter for screening for other disorder TSH reflex Free T4 Today Z13.29 - Encounter for screening for other suspected endocrine disorder Complete Blood Count Auto Diff Today Z13.0 - Encounter for screening for diseases of the blood and blood-forming organs and certain disorders involving the immune mechanism Vitamin D 25-OH (D2 and D3) Today Z13.21 - Encounter for screening for nutritional disorder Vitamin B6 Today Z13.21 - Encounter for screening for nutritional disorder XR knee RT 3V Today M25.561 - Pain in right knee Hemoglobin A1c Today Z13.1 - Encounter for screening for diabetes mellitus Medications: New diclofenac sodium 1% apply to single elbow, wrist or hand; for hand includes palm/fingers/back of hand 2 grams topical QID 100 grams 0RF Coding Level of Care Code Est Pt Prev Care 18-39y(33372) Diagnoses Physical exam Z00.00 Primary hypertension I10 Hypertension type: primary hypertension Fatty liver K76.0 Hydronephrosis concurrent with and due to calculi of kidney and ureter N13.2 Acute pain of right knee M25.561 Chronicity: acute Dysphagia, unspecified type R13.10 Dysphagia type: unspecified Additional Codes MATHEW-7 Assessment Billing - MATHEW-7 Assessment Tool: MATHEW-7 Assessment [id number] ([id number]) Time Spent (min) 23
== END 2023-08-16 14:50 | disposition home or self-care (01) ==
PROVIDERS: PCP Nurse Practitioner Family; Visit Provider Nurse Practitioner Primary Care
DX: Z00.00 Encounter for general adult medical examination without abnormal findings (principal); I10 Essential (primary) hypertension; K76.0 Fatty (change of) liver, not elsewhere classified; N13.2 Hydronephrosis with renal and ureteral calculous obstruction; M25.561 Pain in right knee; R13.10 Dysphagia, unspecified
CPT/HCPCS: 99395

== ENCOUNTER 2023-09-13 08:37 | Outpatient (REF) | payer OTHER, SELFPAY ==
--- NOTE | ~2023-09-13 | XR_ITS ---
EXAMINATION: XR KNEE, RIGHT CLINICAL INFORMATION: Pain in right knee COMPARISON: None available. TECHNIQUE: Four views of the right knee. FINDINGS: No fracture or joint effusion. Alignment is anatomic. Joint spaces are maintained. No abnormal soft tissue calcification. XR/XR knee RT 4V IMPRESSION: Normal right knee.
[2023-09-13 11:34] LABS: Appearance Urine Clear; Color Urine Yellow; Glucose Urine UA Negative (Negative); Leukocyte Esterase Urine Negative (Negative); Nitrite Urine Negative (Negative); PH >= 9.0 (5.0-9.0); Specific Gravity - Urine 1.015 (1.005-1.025); Urine Blood Negative (Negative); Urine Ketones Negative (Negative); Urine Protein Negative (Neg-Trace)
[2023-09-13 11:40] LABS: MANUAL DIFF FLAG NO
[2023-09-13 11:44] LABS: Basophils Absolute Auto 0.1 X10*3/uL (0.0-0.2); Basophils Percent Auto 0.9 % (0-2); Eosinophils Absolute Auto 0.2 X10*3/uL (0.0-0.4); Hematocrit 46.3 % (42.0-52.0); Hemoglobin 15.6 g/dl (14.0-18.0); Imm Gran Abs Auto 0.01 X10*3/uL (0.00-0.03); Imm Gran Pct Auto 0.1 % (0.0-0.4); Lymphocytes Absolute Auto 2.1 X10*3/uL (1.2-4.9); Lymphocytes Percent Auto 31.4 % (20-40); Mean Corpuscular HGB Conc 33.7 g/dl (31.0-36.0); Mean Corpuscular Hemoglobin 29.3 pg (27.0-33.0); Mean Corpuscular Volume 86.9 fL (80.0-98.0); Mean Platelet Volume 9.9 fL (9.4-12.4); Monocytes Absolute Auto 0.4 X10*3/uL (0.1-1.2); Monocytes Percent Auto 6.3 % (2-11); Neutrophils Absolute Auto 3.9 x10*3/uL (2.0-8.3); Neutrophils Percent Auto 58.3 % (45-73); Platelet Count 285 X10*3/uL (160-400); Red Blood Count 5.33 X10*6/uL (4.60-5.80); Red Cell Distribution Width 13.5 % (11.0-16.0); White Blood Count 6.7 X10*3/uL (4.8-10.8)
[2023-09-13 11:55] LABS: Estimated Average Glucose 105 mg/dL; Hemoglobin A1c % 5.3 % (<6.0)
[2023-09-13 12:09] LABS: Alanine Aminotransferase 52 U/L (0-40); Albumin Level 4.3 g/dL (3.5-5.0); Alkaline Phosphatase 73 U/L (39-117); Anion Gap 12 (12-20); Aspartate Amino Transferase 37 U/L (5-37); Bilirubin Total 0.8 mg/dL (0.0-1.0); Blood Urea Nitrogen 12 mg/dL (9-16); Calcium 9.6 mg/dL (8.4-10.2); Carbon Dioxide 27 mmol/L (22-29); Chloride 105 mmol/L (96-108); Cholesterol 133 mg/dL (<200); Estimated Glomerular Filt Rate > 60; Glucose Random 92 mg/dL (60-115); HDL Cholesterol 35 mg/dL (>40); LDL Cholesterol Calculated 81 mg/dL (<100); Potassium 4.1 mmol/L (3.3-5.1); Sodium 140 mmol/L (135-145); Total Protein 7.8 g/dL (6.5-8.0); Triglycerides 88 mg/dL (<150)
[2023-09-13 12:25] LABS: Vitamin B12 668 pg/mL (200-900)
[2023-09-13 12:31] LABS: TSH reflex Free T4 1.03 uIU/mL (0.32-4.0)
[2023-09-16 23:27] LABS: Vitamin D 25-OH, D2 <4 ng/mL; Vitamin D 25-OH, D3 16 ng/mL; Vitamin D 25-OH, Total 16 ng/mL (30-100)
[2023-09-19 06:04] LABS: Vitamin B6 89.4 ng/mL (2.1-21.7)
== END 2023-09-13 08:38 | disposition home or self-care (01) ==
LOC: HO.HMGCX 08:37
PROVIDERS: PCP Nurse Practitioner Family; Referring Provider Nurse Practitioner Primary Care; Visit Provider Nurse Practitioner Primary Care
DX: M25.561 Pain in right knee (principal); Z13.21 Encounter for screening for nutritional disorder; Z13.89 Encounter for screening for other disorder; Z13.220 Encounter for screening for lipoid disorders; Z13.1 Encounter for screening for diabetes mellitus; Z91.89 Other specified personal risk factors, not elsewhere classified; Z13.0 Encounter for screening for diseases of the blood and blood-forming organs and certain disorders involving the immune mechanism
CPT/HCPCS: 36415; 73564; 80053; 80061; 81003; 82306; 82607; 83036; 84207; 84443; 85025

== ENCOUNTER 2023-10-18 09:33 | Outpatient (REF) | payer OTHER, SELFPAY ==
--- NOTE | ~2023-10-18 | US_ITS ---
EXAMINATION: US RETROPERITONEAL LIMITED (RENAL ONLY) CLINICAL INFORMATION: Calculus of kidney. COMPARISON: Ultrasound kidneys and bladder 04/19/2023. CT abdomen and pelvis 02/12/2023. Limited abdominal ultrasound 07/06/2022. TECHNIQUE: Real-time imaging of the kidneys. Limited visualization due to bowel gas. FINDINGS: RIGHT KIDNEY: 13.9 x 6.4 x 6.4 cm (SAG x AP x TRV). No hydronephrosis. No renal calculi. Renal cortical thickness is normal. Limited visualization. LEFT KIDNEY: 13.9 x 6.9 x 5.9 cm (SAG x AP x TRV). No hydronephrosis. No renal calculi. Renal cortical thickness is normal. Limited visualization. US/US renal BI IMPRESSION: No hydronephrosis. No renal calculi.
== END 2023-10-18 09:34 | disposition home or self-care (01) ==
LOC: HO.US 09:33
PROVIDERS: PCP Nurse Practitioner Family; Visit Provider Nurse Practitioner Family
DX: N20.0 Calculus of kidney (principal)
CPT/HCPCS: 76775

== ENCOUNTER 2023-11-15 08:45 | Emergency (ER) | payer OTHER, SELFPAY ==
--- NOTE | ~2023-11-15 | US_ITS ---
EXAMINATION: US TRIPLEX LOWER EXTREMITY, LEFT CLINICAL INFORMATION: Left calf pain COMPARISON: None available. TECHNIQUE: Color-flow triplex imaging with spectral analysis and compression Doppler were performed on the left lower extremity. FINDINGS: Respiratory variation, normal compression and augmented flow are noted throughout the left lower extremity. The visualized common femoral vein, superficial femoral vein, profunda femoral vein, popliteal vein and midcalf peroneal and posterior tibial venous segments show no evidence of deep venous thrombosis. Vegetable Cook vein seen in the distal left calf measuring 0.3 cm in diameter without evidence of reflux. US/US venous duplex LE LT IMPRESSION: No evidence of deep venous thrombosis involving the left lower extremity. Electronically signed by: Stephen Stauffer MD 11/15/2023 11:03 AM EDT
--- NOTE | ~2023-11-15 | XR_ITS ---
EXAMINATION: XR LUMBOSACRAL SPINE CLINICAL INFORMATION: Pain radiating down legs COMPARISON: None available. TECHNIQUE: Three views of the lumbosacral spine. FINDINGS: There are 5 nonrib-bearing lumbar-type vertebrae. Straightening of lumbar lordosis. The lumbar vertebral bodies demonstrate normal height. Minimal retrolisthesis of L4 over L5. Degenerative endplate osteophytes most prominent at T12-L1 and L2-L3. There is moderate intervertebral disc space narrowing at L2-L3. Mild intervertebral disc space narrowing of the levels. Posterior elements appear intact. The paraspinal soft tissues are unremarkable. Bilateral sacroiliac joints are intact. XR/XR lumbar spine 2-3V IMPRESSION: Multilevel lumbar spondylosis with findings most pronounced at L2-L3. Electronically signed by: Stephen Stauffer MD 11/15/2023 11:35 AM EDT
[2023-11-15 09:24] VITALS: BP 147/89; PULSE 68; RESP 16; TEMP 36.9; O2SAT 98; BMI 45.7
--- NOTE | 2023-11-15 10:26 | ED_ITS ---
HPI - General Adult General Chief complaint: General Medical Stated complaint: L leg pain Time Seen by Provider: 11/15/23 10:00 Source: patient and RN notes reviewed Mode of arrival: ambulatory Limitations: no limitations History of Present Illness ED Provider: Adrianne Arteaga PA-C HPI narrative: This is a 32-year-old male, with a history of hypertension, who presents emergency department with complaints of left low back pain, left buttock pain x2 weeks. Patient denies any recent trauma or injury. He states that 2 weeks ago he woke with left buttock pain which has since progressed and now is radiating down the entire left leg. He does endorse some numbness and tingling sensation in his foot. He denies any saddle anesthesia, urinary or bowel retention or incontinence. Denies any fevers or chills. He has been taking Tylenol for his symptoms which has provided him with some relief. He also endorses left calf pain. Denies any recent travel, surgeries, hospitalizations or history of blood clots. No other complaints or concerns at this time. MD complaint: Left leg pain Radiation: back Quality: aching Pain Consistency: constant Relieving factors: immobilization Exacerbating factors: movement Associated symptoms: denies other symptoms Treatments prior to arrival: none Related Data Previous Rx's ?Medication ?Instructions ?Recorded metoprolol succinate 50 mg 50 mg PO DAILY 90 days #90 tabs 04/05/23 tablet,extended release 24 hr diclofenac sodium 1 % topical gel 2 g topical QID #100 grams 08/16/23 pyridoxine (vitamin B6) 100 mg 100 mg PO DAILY 90 days #90 tabs 09/13/23 tablet hydrochlorothiazide 12.5 mg tablet 12.5 mg PO DAILY #90 tabs 10/16/23 acetaminophen 500 mg tablet 1,000 mg (2 x 500 mg) PO QID PRN 11/15/23 (Tylenol Extra Strength) pain #30 tabs cyclobenzaprine 10 mg tablet 10 mg PO TID PRN muscle spasm #30 11/15/23 tabs ibuprofen 600 mg tablet 600 mg PO Q6H PRN pain #30 tabs 11/15/23 lidocaine 5 % topical patch 1 patch topical DAILY #30 ea 11/15/23 (Lidoderm) prednisone 20 mg tablet 20 mg PO DAILY 5 days #5 tabs 11/15/23 Allergies Allergy/AdvReac Type Severity Reaction Status Date / Time pineapple Allergy Severe throat Verified 11/15/23 09:25 swelling Review of Systems Review of Systems: Yes all other systems are reviewed and are negative Constitutional: Constitutional: Reports as per [facility] Past Medical History Attestation statement: The following information was validated with the patient. Medical History Physical exam Fatty liver Morbidly obese Snores Obesity Elevated liver enzymes Abnormal EKG Surgical History No pertinent past surgical history Family History Family History Father Diabetes Cancer Mother Diabetes High blood pressure Social History Social History Housing: Apartment Alcohol intake: current Alcohol intake frequency: a few times a month Patient Tobacco Use Status: Never used Tobacco e-Cigarette/Vaping Use: Never Used Second Hand Smoke Exposure: Yes Advance Directives: No Advance Directives Information Provided: Yes Do you have a plan to hurt others: No Plan service: No Current occupational status: employed Current occupation: [employer] Current occupational exposures/hazards: Yes Cognitive needs: No Hearing needs: No Vision needs: No Physical Exam ED Vital Signs: Vital Signs - 24 hr 11/15/23 09:24 Temperature 98.4 F Pulse Rate 68 Respiratory Rate 16 Blood Pressure 147/89 H Pulse Oximetry 98 Oxygen Delivery Method Room Air BMI result Body Mass Index 45.7 Const General: cooperative, comfortable and no acute distress Orientation/consciousness: patient oriented x3 Limitations: no limitations [facility] Head: Yes normal to inspection, Yes normocephalic and Yes atraumatic Ears: hearing grossly normal bilaterally General nose exam: Normal external nose present Face and sinus: Yes normal facial exam Mouth: Normal oral and palatal mucosa present, oropharynx normal and moist mucous membranes Throat: Yes posterior oropharynx normal Eyes General: appearance normal, both eyes and all related structures Eyelids: Yes eyelids normal Conjunctivae: conjunctivae normal Sclerae: sclerae normal Pupils: Equal, round and reactive pupils present EOM: EOMs intact bilaterally Neck Neck: Yes normal visual inspection, Yes full ROM and Yes no lymphadenopathy Lymphatic: no lymphadenopathy noted Chest Chest palpation & inspection: normal inspection of the chest Resp Effort & Inspection: normal respiratory effort and able to speak in complete sentences Auscultation: clear to auscultation bilaterally, no crackles, no rales, no rhonchi and no wheezes Cardio Rate: regular rate Rhythm: regular rhythm Heart sounds: S1 normal heart sound present and S2 normal heart sound present GI Inspection: Yes normal to inspection Back/Spine/Pelvis Other: Tenderness palpation along the left SI joint region. Positive straight leg raise on the left. DTRs 2+ Skin General skin exam: no rashes or lesions noted Trauma: no lacerations or abrasions Wounds: no wounds Neuro General: patient oriented x3 and moves all extremities Cranial nerves: Yes Equal, round and reactive pupils present Extrem Other: Left leg as well, he does have tenderness palpation over the left calf. Negative Homans sign. No pitting edema noted General: Yes normal to inspection Right upper extremity: normal to inspection Left upper extremity: normal to inspection Right lower extremity: normal to inspection Left lower extremity: normal to inspection Course Reevaluation(s) Reevaluation #1: Ultrasound returns, no DVT involving the left lower extremity. X-ray revealing multilevel lumbar spondylosis with findings most pronounced at L2-L3. Discussed findings with patient. Discharged on steroids, muscle relaxants, ibuprofen Tylenol, and Lidoderm patches. Given strict return precautions. He understands and agrees with plan. Patient stable for discharge. Time: 11:46 Medications Administered Discontinued Medications Generic Name Dose Route Start Last Admin Trade Name Freq PRN Reason Stop Dose Admin Ketorolac Tromethamine 30 mg 11/15/23 10:21 11/15/23 10:27 Ketorolac Tromethamine 30 Mg/Ml Vial IM 11/15/23 10:22 30 mg ONCE ONE Administration Medical Decision Making Medical Decision Making [facility] Narrative: This is a 32-year-old male who presents emergency department complaints of left buttock pain, left low back pain x2 weeks. No recent trauma or injury. On arrival, patient is mildly hypertensive at 147/89, all other vital signs within normal limits. He is ambulatory with steady gait. He also is experiencing some left calf tenderness. Differential diagnoses include lumbar radiculopathy, sciatica, lumbar strain, DVT Plan: Toradol, lumbar spine x-ray, ultrasound left lower extremity Differential Diagnosis Differential Diagnoses: The differential diagnosis associated with the presentation includes See above Admission/Observation Consideration of admission/observation: Escalation of care including admission/observation considered Radiology Impression Discussion of test interpretation with radiology: I have reviewed the radiologist's reading. Radiologist Impression: US/US venous duplex LE LT IMPRESSION: No evidence of deep venous thrombosis involving the left lower extremity. Electronically signed by: Stephen Stauffer MD 11/15/2023 11:03 AM EDT RP Dictated By: Stephen Stauffer XR/XR lumbar spine 2-3V IMPRESSION: Multilevel lumbar spondylosis with findings most pronounced at L2-L3. Electronically signed by: Stephen Stauffer MD 11/15/2023 11:35 AM EDT RP Dictated By: Stephen Stauffer Discharge Plan Discharge Clinical Impression: Left lumbar radiculopathy, Spondylosis Patient Disposition: Home, Self-Care Instructions: Lumbar Radiculopathy (ED), Lower Back Exercises (ED) Additional Instructions: You were seen in the emergency department due to back pain/leg pain. Your x-rays show spondylosis worse at L2-L3. This is a form of degenerative disc disease. Please take prescribed medication as directed. Alternate between ibuprofen and Tylenol as needed for pain. Prednisone can help with inflammation. You may apply Lidoderm patches to the area to help with pain. Please do not directly apply ice or heat to the area that has a patch on it. Take Flexeril as needed for muscle spasms, please be advised that this can cause drowsiness, do not drink alcohol or drive while taking this medication. Follow-up with your primary care physician, call today to make an appointment. You would benefit from physical therapy, request that you get a referral to this from your primary care physician. If any new or worsening symptoms occur including but not limited to numbness and tingling into your groin, loss of bladder or bowel control, chest pain, shortness breath, or any other concerning symptoms, please return for re- evaluation. Prescriptions: New lidocaine [Lidoderm] 5 % adhesive patch,medicated 1 patch topical DAILY Qty: 30 0RF Rx Instructions: leave on most painful area for up to 12 hrs prednisone 20 mg tablet 20 mg PO DAILY 5 Days Qty: 5 0RF ibuprofen 600 mg tablet 600 mg PO Q6H PRN (Reason: pain) Qty: 30 0RF acetaminophen [Tylenol Extra Strength] 500 mg tablet 1,000 mg PO QID PRN (Reason: pain) Qty: 30 0RF cyclobenzaprine 10 mg tablet 10 mg PO TID PRN (Reason: muscle spasm) Qty: 30 0RF No Action metoprolol succinate 50 mg tablet extended release 24 hr 50 mg PO DAILY 90 Days Qty: 90 1RF pyridoxine (vitamin B6) 100 mg tablet 100 mg PO DAILY 90 Days Qty: 90 1RF hydrochlorothiazide 12.5 mg tablet 12.5 mg PO DAILY Qty: 90 1RF diclofenac sodium 1 % gel 2 g topical QID Qty: 100 0RF Rx Instructions: apply to single elbow, wrist or hand; for hand includes palm/fingers/back of hand Print Language: Occitan
[2023-11-15] MEDS: Ketorolac Tromethamine 30 MG/ML VIAL IM (10:27)
[2023-11-15 12:06] VITALS: BP 147/97; PULSE 56; RESP 16; TEMP 36.6; O2SAT 98
== END 2023-11-15 12:07 | disposition home or self-care (01) ==
PROVIDERS: Emergency Provider Emergency Medicine; PCP Nurse Practitioner Family
DX: M47.816 Spondylosis without myelopathy or radiculopathy, lumbar region (principal); R60.0 Localized edema
CPT/HCPCS: 72100; 93971; 96372; 99283; 99284; J1885

== ENCOUNTER 2023-11-27 07:51 | Outpatient (AMB) | payer OTHER, SELFPAY ==
--- NOTE | 2023-11-27 07:11 | A.OFFPC_ITS ---
Intake Visit Reasons: ED F/u~ [phone] Allergies pineapple Allergy (Severe, Verified 11/27/23 07:16) throat swelling Medication List - Last Reconciled 11/27/23 by KIMO Patel acetaminophen (Tylenol Extra Strength) 1,000 mg (2 x 500 mg) PO QID PRN cyclobenzaprine 10 mg PO TID PRN dexamethasone 4 mg PO DAILY 9 days diclofenac sodium 1% 2 grams topical QID hydrochlorothiazide 12.5 mg PO DAILY ibuprofen 600 mg PO Q6H PRN lidocaine 5% (Lidoderm) 1 patch topical DAILY metoprolol succinate ER 50 mg PO DAILY 90 days pyridoxine (vitamin B6) 100 mg PO DAILY 90 days Tobacco use date assessed: 08/16/23 Dental Screening Dental Screen Date: 08/16/23 HPI ED F/u~ [phone] HPI0 Details Pt was seen in the ER on 11/14 c/o left lower back pain and left buttock pain radiating down his LLE. US was negative for DVT. XR showed multilevel lum bar spondylosis with findings most pronounced at L2-L3. Pt was d/c with prednisone, cyclobenzaprine, lidocaine patches, ibuprofen, and tylenol. Pt reports ongoing pain and radicular symptoms down his LLE, though not as intense as previously. Will send dexamethasone. Will also refer to PT. Denies any signs of cauda equina. [facility] Medical History Physical exam Fatty liver Morbidly obese Snores Obesity Elevated liver enzymes Abnormal EKG Surgical History No pertinent past surgical history Family History Father Diabetes Cancer Mother Diabetes High blood pressure Social History Housing: Apartment Alcohol intake: current Alcohol intake frequency: a few times a month Patient Tobacco Use Status: Never used Tobacco e-Cigarette/Vaping Use: Never Used Second Hand Smoke Exposure: Yes service: No Current occupational status: employed Current occupation: [employer] Current occupational exposures/hazards: Yes Cognitive needs: No Hearing needs: No Vision needs: No Questionnaire Thrive Questionnaire Date Thrive assessed: 08/16/23 MATHEW-7 AMB Questionnaire MATHEW-7 Date MATHEW - 7 assessed: 08/16/23 Source: Developed by Drs. Christian Laurent, Lise Waldrop, Clifford Maldonado and colleagues, with an educational cortez from [employer]. Review of Systems Const Reports as per HPI Physical exam (Primary Care) Tobacco/Smoking Status: Tobacco use Status Tobacco use date assessed 08/16/23 11/27/23 07:14 Patient Tobacco Use Status Never used Tobacco 11/27/23 07:14 e-Cigarette/Vaping Use Never Used 11/27/23 07:14 Thrive Assessment: Date of Thrive Assessment Date Thrive assessed 08/16/23 11/27/23 07:14 Const General: cooperative Orientation/consciousness: patient oriented x3 Neuro General: patient oriented x3 Psych Appearance: grossly normal Mental Status: mental status grossly normal Speech and movement: Clear speech present Affect: normal affect Attitude: cooperative Thought process: Normal thought process present Thought content: Normal thought content present Insight: Good insight present (Psych) Judgement: Good judgement present (Psych) Telehealth Telehealth Telehealth Platform: [facility] Location of provider rendering services: practice address Location of patient: address on file Patient Identification confirmed using: Name, : Yes Telehealth method: video Patient verbally consented to treatment: Yes Patient verbally consented to billing insurance company: Yes Patient informed of any privacy concerns related to visit: Yes Minutes spent on Phone/Video with Pt.: 10 Assessment and Plan Assessment & Plan (1) Sciatica: Code(s): M54.30 - Sciatica, unspecified side Plan: Dexamethasone sent, referred to PT Plan The patient agreed to the use of a emergency medical service manager for this encounter. Scribed for KIMO Sagastume by Daniella Long emergency medical service manager, on 11/27/2023 at 07:10 EST. Orders: Orders PT Evaluation and Treatment Today M54.30 - Sciatica, unspecified side Medications: New dexamethasone 1 tab 3 times a day for 3 days, 1 tab twice a day for 3 days, 1 tab daily for 3 days. 4 mg PO DAILY 18 tabs 0RF 9 days Coding Level of Care Code Tele Est Pt Level 3 (30660) Diagnoses Sciatica M54.30
== END 2023-11-27 08:37 | disposition home or self-care (01) ==
LOC: HO.HMGC 07:51
PROVIDERS: PCP Nurse Practitioner Family; Visit Provider Nurse Practitioner Family
DX: M54.32 Sciatica, left side (principal)
CPT/HCPCS: 99213

== ENCOUNTER 2023-12-13 13:40 | Outpatient (AMB) | payer OTHER, SELFPAY ==
--- NOTE | 2023-12-13 13:40 | A.OFFVIS_ITS ---
Intake Visit Reasons: 6m/US(set) Intake Note: Patient presents today for follow up on: Kidney stone and ultrasound results Imaging Completed: 10/18/23 Urology Medications: Vitamin B6 Blood Thinner: none Manager Fiber Required: No Allergies pineapple Allergy (Severe, Verified 12/13/23 14:07) throat swelling Medication List - Last Reconciled 12/13/23 by KIMO Molina cholecalciferol (vitamin D3) 50 mcg PO DAILY hydrochlorothiazide 12.5 mg PO DAILY metoprolol succinate ER 50 mg PO DAILY 90 days pyridoxine (vitamin B6) 100 mg PO DAILY 90 days HPI Comments Details: Jaskaran Pacheco is a very pleasant 32-year-old male patient of Dr. Pack. He has a past medical history of fatty liver, obesity, elevated liver enzymes, and nephrolithiasis. He is being followed up on today via video telehealth for his history of nephrolithiasis. Recent renal imaging results reviewed with the patient today. Bilateral kidneys with no hydronephrosis or renal calculi. When asked patient currently denies any bothersome urinary issues or concerns. He e ndorses to be drinking plenty of water daily in his compliant with vitamin B6 as prescribed. When asked he does report urinary frequency however does not find this bothersome as he relates it to his increased consumption of water. He otherwise denies urinary urgency, urinary frequency, incontinence, nocturia, hematuria, dysuria, foul smelling urine, changes to urinary stream, flank pain, fever, and or chills. He is happy with his current voiding parameters. He otherwise offers no other issues or concerns at this time. [facility] Medical History Physical exam Fatty liver Morbidly obese Snores Obesity Elevated liver enzymes Abnormal EKG Surgical History No pertinent past surgical history Family History Father Diabetes Cancer Mother Diabetes High blood pressure Social History Housing: Apartment Alcohol intake: current Alcohol intake frequency: a few times a month Patient Tobacco Use Status: Never used Tobacco e-Cigarette/Vaping Use: Never Used Second Hand Smoke Exposure: Yes service: No Current occupational status: employed Current occupation: [employer] Current occupational exposures/hazards: Yes Cognitive needs: No Hearing needs: No Vision needs: No Review of Systems Const Reports as per HPI Eyes Reports no additional complaints ENT Reports no additional complaints Card Reports as per HPI Resp Reports no additional complaints GI Reports as per HPI Reports as per HPI Musc Reports no additional complaints Neuro Reports no additional complaints Psych Reports no additional complaints Endo Reports no additional complaints Reymundo/Lymph Reports no additional complaints Aller/Immun Reports no additional complaints Physical Exam Const General: cooperative, healthy appearing, comfortable, no acute distress, well developed, alert and awake Orientation/consciousness: patient oriented x3 Resp Effort & Inspection: normal respiratory effort and able to speak in complete sentences Neuro General: patient oriented x3 Psych Appearance: grossly normal and well kempt Mental Status: mental status grossly normal Speech and movement: Normal speech and movement present and Clear speech present Affect: normal affect Attitude: cooperative Thought process: Normal thought process present Thought content: Normal thought content present Insight: Fair insight present (Psych) Judgement: Fair judgement present (Psych) Telehealth Telehealth Telehealth Platform: [facility] Location of provider rendering services: practice address Location of patient: address on file Patient Identification confirmed using: Name, : Yes Telehealth method: video Patient verbally consented to treatment: Yes Patient verbally consented to billing insurance company: Yes Patient informed of any privacy concerns related to visit: Yes Minutes spent on Phone/Video with Pt.: 15 Results Reviewed Results Reviewed: Date of Service: 10/18/23 EXAMINATION: US RETROPERITONEAL LIMITED (RENAL ONLY) CLINICAL INFORMATION: Calculus of kidney. COMPARISON: Ultrasound kidneys and bladder 04/19/2023. CT abdomen and pelvis 02/12/2023. Limited abdominal ultrasound 07/06/2022. TECHNIQUE: Real-time imaging of the kidneys. Limited visualization due to bowel gas. FINDINGS: RIGHT KIDNEY: 13.9 x 6.4 x 6.4 cm (SAG x AP x TRV). No hydronephrosis. No renal calculi. Renal cortical thickness is normal. Limited visualization. LEFT KIDNEY: 13.9 x 6.9 x 5.9 cm (SAG x AP x TRV). No hydronephrosis. No renal calculi. Renal cortical thickness is normal. Limited visualization. IMPRESSION: No hydronephrosis. No renal calculi. Assessment & Plan Assessment & Plan (1) Hydronephrosis concurrent with and due to calculi of kidney and ureter: Comment: Establish care with Urology, drinking plenty of fluids and taking be 6 vitamin Code(s): N13.2 - Hydronephrosis with renal and ureteral calculous obstruction Category: Medical (2) Kidney calculi: Code(s): N20.0 - Calculus of kidney Category: Medical Plan Recent renal imaging results reviewed with the patient today; as noted above. Patient currently denies any bothersome urinary issues or concerns. Continue vitamin B6 as discussed and prescribed. Continue adding 1 oz of lemon juice to water daily. Will obtain renal ultrasound in 1 year. Follow-up in 1 year with imaging to be completed prior; or sooner with any issues, concerns, and or questions. Orders: Orders US renal BI 1 Year N20.0 - Calculus of kidney Patient Instructions: The patient had an opportunity to ask questions regarding the treatment plan. All questions were answered. Physical exam, labs, and imaging were discussed and reviewed in detail. As well as risks, benefits, and discussion of treatment choices. No major barriers to understanding were identified. The patient expressed understanding and agreement with the above treatment plan. The patient was made aware they should contact our office by phone for worsening of their current condition, the appearance of new symptoms, or with any questions or concerns. Compliance is encouraged with any medications and follow up testing that is ordered. It is a privilege to be allowed the opportunity to participate in? your urological care.? Again, if you have any questions or concerns If you have any questions or concerns please do not hesitate to contact me. The office is [phone]. This note is constructed using voice recognition software. While every effort has been made to ensure accuracy supervisor [employer] errors may have been included. Yours sincerely, KIMO Molina Coding Level of Care Code Tele New Pt Level 3 (81958) Diagnoses Hydronephrosis concurrent with and due to calculi of kidney and ureter N13.2 Kidney calculi N20.0 Time Spent (min) 15
== END 2023-12-13 14:26 | disposition home or self-care (01) ==
LOC: HO.HUSH 13:40
PROVIDERS: PCP Nurse Practitioner Family; Visit Provider Nurse Practitioner Family
DX: N13.2 Hydronephrosis with renal and ureteral calculous obstruction (principal); N20.0 Calculus of kidney
CPT/HCPCS: 99213

== ENCOUNTER → 2023-12-13 13:40 | Outpatient (BNVA) | payer OTHER, SELFPAY | PROVIDERS: PCP Nurse Practitioner Family; Visit Provider Nurse Practitioner Family ==

== ENCOUNTER 2024-02-07 08:59 | Outpatient (AMB) | payer OTHER, SELFPAY ==
--- NOTE | 2024-02-07 09:04 | A.OFFPC_ITS ---
Vital Signs 02/07/24 09:07 Height 6 ft Weight 343 lb BMI 46.5 BP 132/88 Blood Pressure Location Lt brachial Position Sitting Pulse 64 Pulse Source Pulse Oximeter Pulse Oximetry (%) 96 Intake Visit Reasons: 6 month follow up Intake Note: pt is here for 6 month f/up Allergies pineapple Allergy (Severe, Verified 02/07/24 09:41) throat swelling Medication List - Last Reconciled 02/07/24 by Marck Pack [facility] cholecalciferol (vitamin D3) 50 mcg PO DAILY hydrochlorothiazide 12.5 mg PO DAILY metoprolol succinate ER 50 mg PO DAILY 90 days pyridoxine (vitamin B6) 100 mg PO DAILY 90 days Tobacco use date assessed: 08/16/23 Dental Screening Dental Screen Date: 08/16/23 HPI 6 month follow up HPI Details History of Present Illness The patient is a 33-year-old male presenting with a follow-up for hypertension. The patient reports monitoring his blood pressure readings at home, typically recording systolic readings in the 130s and diastolic in the 90s. His current medication regimen includes Metoprolol and Hydrochlorothiazide at a dose of 12.5 mg. During this visit, his diastolic blood pressure remains slightly elevated. The patient acknowledges occasional use of energy drinks, which may contribute to the observed elevated Vitamin B6 levels, a condition associated with potential neuropathy risk. No symptoms of neuropathy, such as numbness or tingling, were mentioned during the conversation. His condition appears stable, with adjustments proposed to his current hypertension management strategy. 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 - Substance Use: Admits to occasional us e of energy drinks. Review of Systems - Cardiovascular: Denies chest pain. - Respiratory: Denies shortness of breat h. - Neurological: Denies neuropathy sympto ms. Physical Exam obese a+Ox3 - Respiratory- No reactive swelling note d in feet or legs. - Cardiovascular- Diastolic blood pressu re slightly elevated, no edema speech clear Results - Labs: Elevated Vitamin B6 levels. _further labs ordered Plan 1. 5 mg to 25 mg of hctz. Monitor blood pressure readings and report through the patient portal: - Elevated Vitamin B6 Levels: Advise reduction or cessation of energy drink consumption to prevent neuropathy, given the risk associated with high Vitamin B6 intake. Plan for additional labs to monitor Vitamin B6 levels. - Follow-up: Schedule a follow-up appoin tment in about three to four months to evaluate blood pressure management and Vitamin B6 levels. Patient was informed and verbally consented to the use of an ambient scribe for clinic note documentation during this visit. Discussion Notes I discussed with the patient the need to increase the dose of Hydrochlorothiazide to 25 mg to better control the diastolic blood pressure, which remains slightly elevated. I explained the potential long-term risks of continued elevated blood pressure and the importance of monitoring these readings at home. We discussed the association of elevated Vitamin B6 levels with energy drink consumption, and I stressed the importance of reducing their intake to prevent potential neuropathy. The patient was informed that the next laboratory tests need not be fasting. I suggested a follow-up in three to four months and encouraged the patient to send blood pressure values through the portal for interim assessment. Patient Instructions - Increase Hydrochlorothiazide dose to 2 5 mg. - Monitor blood pressure at home and rep ort readings through the patient portal. - Reduce energy drink intake to prevent potential Vitamin B6-induced neuropathy and elevated BP. - Schedule follow-up appointment in thre e to four months. - Obtain additional labs as requested, n o need to fast beforehand. COUNTS INCLUDE 234 BEDS AT THE [facility] Medical History Physical exam Fatty liver Morbidly obese Snores Obesity Elevated liver enzymes Abnormal EKG Surgical History No pertinent past surgical history Family History Father Diabetes Cancer Mother Diabetes High blood pressure Social History Housing: Apartment Alcohol intake: current Alcohol intake frequency: a few times a month Patient Tobacco Use Status: Never used Tobacco e-Cigarette/Vaping Use: Never Used Second Hand Smoke Exposure: Yes service: No Current occupational status: employed Current occupation: [employer] Current occupational exposures/hazards: Yes Cognitive needs: No Hearing needs: No Vision needs: No Questionnaire PHQ-9 Over the last 2 weeks, how often have you been bothered by any of the following problems? 1. Little interest or pleasure in doing things: not at all 2. Feeling down, depressed, or hopeless: not at all 3. Trouble falling or staying asleep, or sleeping too much: several days 4. Feeling tired or having little energy: several days 5. Poor appetite or overeating: not at all 6. Feeling bad about yourself - or that you are a failure or have let yourself or your family down: not at all 7. Trouble concentrating on things, such as reading the newspaper or watching television: not at all 8. Moving or speaking so slowly that other people could have noticed. Or the opposite - being so fidgety or restless that you have been moving around a lot more than usual: not at all 9. Thoughts that you would be better off or of hurting yourself in some way: not at all Total score: 2 Depression Screening Interpretation: Negative Depression Screening Done: Yes 23041 - PHQ-9 Billing: Yes Source: Developed by Drs. Christian Laurent, Lise Waldrop, Clifford Maldonado and colleagues, with an educational cortez from [employer]. Thrive Questionnaire Date Thrive assessed: 02/07/24 I am a: Patient What is your living situation today?: I have a steady place to live Within the past 12 months, did the food you bought not last and you didn't have the money to get more?: Never true Within the past 12 months, did you worry whether your food would run out before you got money to buy more?: Never true Do you have trouble paying for medicines?: No Do you have trouble getting transportation to medical appointments?: No Do you have trouble paying your heating and electricity bill?: No Do you have trouble taking care of your child, family member or friend?: No Do you have trouble with day-to-day activities such as bathing, preparing meals, shopping, managing finances, etc.?: No Are you currently unemployed and looking for a job?: No Are you interested in more education?: No Please select the resources that you would like help with: None Currently or been in a relationship where the following occur: I choose not to answer THRIVE Score: 0 AUDIT C Alcohol Use Questionnaire (AUDIT-C) 1. How often do you have a drink containing alcohol?: Never 3. How often do you have six or more drinks on one occasion?: Never Total Score: 0 Score Reviewed/Action Taken: Yes MATHEW-7 AMB Questionnaire MATHEW-7 Date MATHEW - 7 assessed: 02/07/24 Feeling nervous, anxious, or on edge: 0 = Not at all Not being able to stop or control worryin = Several days Worrying too much about different things: 1 = Several days Trouble relaxin = Not at all Being so restless that it is hard to sit still: 0 = Not at all Becoming easily annoyed or irritable: 0 = Not at all Feeling afraid as if something awful might happen: 0 = Not at all Total MATHEW-7 score (0-4 normal; 5-9 mild; 10-14 moderate; 15-21 severe): 2 Source: Developed by Drs. Christian Laurent, Lise Waldrop, Clifford Maldonado and colleagues, with an educational cortez from [employer]. MATHEW-7 Assessment Billing MATHEW-7 Assessment Tool: MATHEW-7 Assessment 95197 Physical exam (Primary Care) Vital Signs: Last Vital Signs Pulse 64 02/07/24 09:07 BP 132/88 02/07/24 09:07 Pulse Ox 96 02/07/24 09:07 BMI result Body Mass Index 46.5 Tobacco/Smoking Status: Tobacco use Status Tobacco use date assessed 08/16/23 02/07/24 09:05 Patient Tobacco Use Status Never used Tobacco 02/07/24 09:05 e-Cigarette/Vaping Use Never Used 02/07/24 09:05 PHQ-9: PHQ-9 Score PHQ-9: Total score 2 02/07/24 09:10 Depression Screening Interpretation: Negative Thrive Assessment: Date of Thrive Assessment Date Thrive assessed 02/07/24 02/07/24 09:10 Currently or been in a relationship where the following occur: I choose not to answer Coding Level of Care Code Est Pt Level 3 (70009) Diagnoses Primary hypertension I10 Hypertension type: primary hypertension Excessive vitamin B6 intake E67.8 Additional Codes MATHEW-7 Assessment Billing - MATHEW-7 Assessment Tool: MATHEW-7 Assessment 99315 ([id number]) PHQ-9 - 70164 - PHQ-9 Billing: Yes ([id number]) Assessment & Plan Assessment & Plan (1) HTN (hypertension): Comment: Control with metoprolol on hydrochlorothiazide Code(s): I10 - Essential (primary) hypertension Category: Medical Qualifiers: Hypertension type: primary hypertension Qualified Code(s): I10 - Essential (primary) hypertension (2) Excessive vitamin B6 intake: Code(s): E67.8 - Other specified hyperalimentation Category: Medical Plan . Orders: Orders Comprehensive Met. Panel Today I10 - Essential (primary) hypertension TSH reflex Free T4 Today I10 - Essential (primary) hypertension Complete Blood Count Auto Diff Today I10 - Essential (primary) hypertension Medications: Changed From hydrochlorothiazide 12.5 mg PO DAILY 90 tabs 1RF To hydrochlorothiazide 25 mg PO DAILY 90 tabs 1RF
[2024-02-07 09:07] VITALS: BP 132/88; PULSE 64; O2SAT 96; BMI 46.5
== END 2024-02-07 09:50 | disposition home or self-care (01) ==
PROVIDERS: PCP Nurse Practitioner Family; Visit Provider Nurse Practitioner Family
DX: I10 Essential (primary) hypertension (principal); E67.8 Other specified hyperalimentation

== ENCOUNTER → 2024-02-07 08:59 | Outpatient (BNVA) | payer OTHER, SELFPAY | PROVIDERS: PCP Nurse Practitioner Family; Visit Provider Nurse Practitioner Family | DX: I10 Essential (primary) hypertension (principal); E67.8 Other specified hyperalimentation | CPT/HCPCS: 96127; 99212 ==